=== PATIENT | female | born 1970 | race Caucasian/White ===

== ENCOUNTER 2016-06-08 11:01 | Emergency (ER) | payer BC ==
[2016-06-08 11:14] VITALS: BP 107/90
[2016-06-08] MEDS ORDERED: Sodium Chloride 0.9% 10 ML Syringe FLUSH PRN (11:30)
[2016-06-08] MEDS ORDERED: Sodium Chloride 0.9% 1,000 ML IV STA (11:30)
[2016-06-08] MEDS ORDERED: Ondansetron 4 MG/2 ML SDV IVPUSH ONE (11:30)
[2016-06-08] MEDS ORDERED: Sodium Chloride 0.9% 1,000 ML ONE (11:36)
[2016-06-08] MEDS ORDERED: Pantoprazole 40 MG Vial IVPUSH ONE (11:39)
--- NOTE | 2016-06-08 12:44 | EDM.PDOC ---
ED HPI Behavioral Health - General Chief Complaint: Behavioral/Psych Stated Complaint: MEDICATION ISSUES Time Seen by Provider: 06/08/16 11:20 Source of Information: Reports: Patient Exam Limitations: Reports: No limitations - History of Present Illness INITIAL COMMENTS - FREE TEXT/NARRATIVE: The patient presents with abdominal pain, nausea, vomiting for a few days. She has been drinking daily for 1 week. She is unable to take her medications. She has 2 meds for HTN and lorazepam. She feels she is withdrawing from her meds and alcohol. She has some bloody stool. She has a history of alcoholism. She denies chest pain or shortness of breath. Onset of Symptoms: Reports: gradual Duration of Symptoms: Reports: Day(s): Severity: moderate Associated Symptoms: Reports: agitation - Related Data Allergies Allergy/AdvReac Type Severity Reaction Status Date / Time No Known Allergies Allergy Verified 02/05/16 17:23 Home Medications: Home Meds LORazepam [LORazepam] 1 mg PO BID 02/05/16 [History] Losartan [Cozaar] 100 mg PO DAILY 04/30/16 [History] Ondansetron [Zofran ODT] 4 mg PO Q6H PRN #20 tab.dis 06/08/16 [Rx] PARoxetine HCl [Paxil] 20 mg PO DAILY #30 tablet 06/08/16 [Rx] Propranolol [Inderal] 20 mg PO BID 06/08/16 [History] Abdomen Pain Score (Numeric/FACES): 7 Past Medical History Cardiovascular History: Reports: Hypertension, Other (see below) Other Cardiovascular History: "clotting disorder- kota's syndrome" Respiratory History: Reports: Sleep apnea Other Respiratory History: sleeps with cpap Genitourinary History: Reports: UTI, recurrent 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: Musculoskeletal History: Reports: Other (see below) Other Musculoskeletal History: injury to L shoulder Neurological History: Reports: Migraines Other Neuro History: ocular migraines Psychiatric History: Reports: Addiction, Anxiety Other Psychiatric History: alcohol addiction Endocrine/Metabolic History: Reports: Obesity/BMI 30+ - Infectious Disease History Infectious Disease History: Reports: Chicken pox, Influenza, Measles, Other ( see below) Other Infectious Disease History: west nile virus - Past Surgical History HEENT Surgical History: Reports: Naso-sinus surgery Female Surgical History: Reports: D&C, Endometrial ablation Social & Family History - Family History Family Medical History: Noncontributory - Tobacco Use Smoking Status *Q: Never Smoker Second Hand Smoke Exposure: No - Caffeine Use Caffeine Use: Reports: Tea - Alcohol Use Days Per Week of Alcohol Use: 3 Number of Drinks Per Day: 10 Total Drinks Per Week: 30 - Recreational Drug Use Recreational Drug Use: No Drug Use in Last 12 Months: No - Living Situation & Occupation Living situation: Reports: , with spouse Occupation: unemployed ED ROS GENERAL - Review of Systems Review Of Systems: See Below Constitutional: Reports: chills HEENT: Reports: No symptoms Respiratory: Reports: No Symptoms Cardiovascular: Reports: No symptoms Endocrine: Reports: no symptoms GI/Abdominal: Reports: Abdominal pain, Black stool, Nausea, Vomiting : Reports: no symptoms Musculoskeletal: Reports: no symptoms Skin: Reports: no symptoms ED EXAM, BEHAVIORAL HEALTH - Physical Exam Exam: See Below Exam Limited By: No limitations General Appearance: alert, anxious Ears: normal external exam Nose: normal inspection Head: atraumatic, normocephalic Neck: normal inspection Respiratory/Chest: no respiratory distress, lungs clear, normal breath sounds Cardiovascular: regular rate, rhythm, no edema, no murmur GI/Abdominal: soft, non tender, no organomegaly, no mass Back Exam: normal inspection Extremities: normal inspection Neurological: alert, no motor/sensory deficits, oriented x 3 COURSE, BEHAVIORAL HEALTH COMP - Course Vital Signs: Last Vital Signs Temp 98.5 F 06/08/16 11:09 Pulse 107 H 06/08/16 11:09 Resp 24 H 06/08/16 11:09 BP 107/90 06/08/16 11:09 Pulse Ox 97 06/08/16 11:09 Orders, Labs, Meds: Active Orders 24 hr Category Date Time Status Peripheral IV Care [RC] . DIRECTED Care 06/08/16 11:30 Active UA W/MICROSCOPIC [URIN] Stat Lab 06/08/16 11:30 Uncollected Sodium Chloride 0.9% [Saline Flush] Med 06/08/16 11:30 Active 10 ml FLUSH ASDIRECTED PRN ED Antiemetic Medication Reflex [OM.PC] Stat Oth 06/08/16 11:32 Ordered Peripheral IV Insertion Adult [OM.PC] Stat Oth 06/08/16 11:30 Ordered Medication Orders Sodium Chloride (Saline Flush) 10 ml FLUSH ASDIRECTED PRN PRN Reason: Keep Vein Open Last Admin: 06/08/16 11:47 Dose: 10 ml Laboratory Tests 06/08/16 06/08/16 06/08/16 Range/Units 11:45 11:45 11:45 WBC 8.38 (3.98-10.04) K/mm3 RBC 5.04 (3.98-5.22) M/mm3 Hgb 15.6 (11.2-15.7) gm/L Hct 45.9 H (34.1-44.9) % MCV 91.1 (79.4-94.8) fl MCH 31.0 (25.6-32.2) pg MCHC 34.0 (32.2-35.5) g/dl RDW Std Deviation 46.1 (36.4-46.3) fL Plt Count 355 (182-369) K/mm3 MPV 9.2 L (9.4-12.3) fl Neut % (Auto) 42.4 (34.0-71.1) % Lymph % (Auto) 48.2 (19.3-51.7) % Nicholas % (Auto) 6.7 (4.7-12.5) % Eos % (Auto) 1.1 (0.7-5.8) Baso % (Auto) 1.2 (0.1-1.2) % Neut # (Auto) 3.56 (1.56-6.13) K/mm3 Lymph # (Auto) 4.04 H (1.18-3.74) K/mm3 Nicholas # (Auto) 0.56 H (0.24-0.36) K/mm3 Eos # (Auto) 0.09 (0.04-0.36) K/mm3 Baso # (Auto) 0.10 H (0.01-0.08) K/mm3 Sodium 143 (136-145) mEq/L Potassium 3.7 (3.5-5.1) mEq/L Chloride 104 (98-107) mEq/L Carbon Dioxide 26 (21-32) mEq/L Anion Gap 16.7 H (5-15) BUN 14 (7-18) mg/dL Creatinine 0.8 (0.55-1.02) mg/dL Est Cr Clr Drug Dosing 79.91 mL/min Estimated GFR (MDRD) > 60 (>60) mL/min BUN/Creatinine Ratio 17.5 (14-18) Glucose 122 H (74-106) mg/dL Calcium 8.6 (8.5-10.1) mg/dL Total Bilirubin 0.4 (0.2-1.0) mg/dL AST 23 (15-37) U/L ALT 51 (14-59) U/L Alkaline Phosphatase 99 (46-116) U/L Total Protein 7.6 (6.4-8.2) g/dl Albumin 3.2 L (3.4-5.0) g/dl Globulin 4.4 gm/dL Albumin/Globulin Ratio 0.7 L (1-2) Lipase 103 (73-393) U/L HCG, Qual Negative (NEGATIVE) Ethyl Alcohol 0.29 (0.00) gm% Medications Generic Name Dose Route Start Last Admin Trade Name Frejared PRN Reason Stop Dose Admin Sodium Chloride 10 ml 06/08/16 11:30 06/08/16 11:47 Saline Flush FLUSH 10 ml ASDIRECTED PRN Administration Keep Vein Open Discontinued Medications Generic Name Dose Route Start Last Admin Trade Name Freq PRN Reason Stop Dose Admin Sodium Chloride 1,000 mls @ 1,000 mls/hr 06/08/16 11:30 06/08/16 11:45 Normal Saline IV 06/08/16 12:29 1,000 mls/hr .BOLUS STA Administration Sodium Chloride Confirm 06/08/16 11:36 06/08/16 11:46 Normal Saline Administered 06/08/16 11:37 Not Given Dose 1,000 mls @ as directed .ROUTE .STK-MED ONE Ondansetron HCl 4 mg 06/08/16 11:30 06/08/16 11:46 Zofran IVPUSH 06/08/16 11:31 4 mg ONETIME ONE Administration Pantoprazole Sodium 80 mg 06/08/16 11:39 06/08/16 12:01 Protonix Iv IVPUSH 06/08/16 11:40 80 mg .BOLUS ONE Administration Re-Assessment/Re-Exam: I ordered an IV NS 1L bolus, zofran 4mg IV, protonix 80mg IV and labs. Her CBC is negative. Her anion gap is 16.7. Her HCG is negative. Her ETOH was elevated at 0.29. She feels much better now. She would like something different for anxiety so I will get her on some paxil. I will also give her some zofran. Departure - Departure Time of Disposition: 13:20 Disposition: Home, Self-Care 01 Condition: good Clinical Impression: Abdominal pain, Anxiety Alcohol intoxication Qualifiers: Complication of substance-induced condition: uncomplicated Qualified Code(s): F10.120 - Alcohol abuse with intoxication, uncomplicated Alcoholic gastritis Qualifiers: Chronicity: acute Gastritis bleeding: presence of bleeding unspecified Qualified Code(s): K29.20 - Alcoholic gastritis without bleeding Prescriptions: Ondansetron [Zofran ODT] 4 mg PO Q6H PRN #20 tab.dis PRN Reason: Nausea/Vomiting PARoxetine HCl [Paxil] 20 mg PO DAILY #30 tablet Referrals: Amirah Villanueva [employer] TENDER [Primary Care Provider] - 1 Week Forms: ED Department Discharge Additional Instructions: Take the paxil daily for your anxiety. Take the zofran every 6 hours as needed for nausea and vomiting. Take pepcid 20mg daily for 1 week for your upset stomach. Please return if you are worse with your anxiety or abdominal pain. - My Orders Last 24 Hours: My Active Orders 06/08/16 11:30 Peripheral IV Care [RC] . DIRECTED UA W/MICROSCOPIC [URIN] Stat Sodium Chloride 0.9% [Saline Flush] 10 ml FLUSH ASDIRECTED PRN Peripheral IV Insertion Adult [OM.PC] Stat 06/08/16 11:32 ED Antiemetic Medication Reflex [OM.PC] Stat - Assessment/Plan Last 24 Hours: My Active Orders 06/08/16 11:30 Peripheral IV Care [RC] . DIRECTED UA W/MICROSCOPIC [URIN] Stat Sodium Chloride 0.9% [Saline Flush] 10 ml FLUSH ASDIRECTED PRN Peripheral IV Insertion Adult [OM.PC] Stat 06/08/16 11:32 ED Antiemetic Medication Reflex [OM.PC] Stat
== END 2016-06-08 13:35 | disposition home or self-care (01) ==
LOC: JD.ED 11:01
DX: K29.20 Alcoholic gastritis without bleeding (principal); F10.229 Alcohol dependence with intoxication, unspecified; F10.239 Alcohol dependence with withdrawal, unspecified; Y90.1 Blood alcohol level of 20-39 mg/100 ml; I10 Essential (primary) hypertension; Z79.899 Other long term (current) drug therapy; F41.9 Anxiety disorder, unspecified; E66.9 Obesity, unspecified; Z68.30 Body mass index [BMI] 30.0-30.9, adult
CPT/HCPCS: 36415; 80053; 81001; 83690; 84703; 85025; 96361; 96374; 96375; 99284; C9113; G0480; J2405; J7040; J7050

== ENCOUNTER 2016-06-09 00:55 | Emergency (ER) | payer BC ==
--- NOTE | 2016-06-09 01:01 | EDM.PDOC ---
ED HPI GENERAL MEDICAL PROBLEM - General Chief Complaint: Gastrointestinal Problem Stated Complaint: VOMITING Time Seen by Provider: 06/09/16 01:00 - History of Present Illness INITIAL COMMENTS - FREE TEXT/NARRATIVE: 46-year-old female returns the emergency room with abdominal discomfort that she attributes to withdrawing from alcohol. Patient seen earlier today with similar complaints saved some fluids and Zofran and was doing better she was discharged home on Paxil 20 mg a day. Patient claims that she can keep her Zofran down and just cannot keep the rest of her medications down she complains of significant epigastric discomfort. She says she has had this for over a month. She denies fevers or chills no chest pain breathing difficulties or shortness of breath. Abdomen Pain Score (Numeric/FACES): 8 - Related Data Allergies Allergy/AdvReac Type Severity Reaction Status Date / Time No Known Allergies Allergy Verified 06/09/16 02:07 Home Meds: Home Meds LORazepam [LORazepam] 1 mg PO BID 02/05/16 [History] Losartan [Cozaar] 100 mg PO DAILY 04/30/16 [History] Ondansetron [Zofran ODT] 4 mg PO Q6H PRN #20 tab.dis 06/08/16 [Rx] PARoxetine HCl [Paxil] 20 mg PO DAILY #30 tablet 06/08/16 [Rx] Propranolol [Inderal] 20 mg PO BID 06/08/16 [History] Famotidine [Pepcid] 20 mg PO BID #60 tablet 06/09/16 [Rx] Sucralfate [Carafate] 1 gm PO QIDACANDBED #40 tablet 06/09/16 [Rx] Past Medical History Cardiovascular History: Reports: Hypertension, Other (see below) Other Cardiovascular History: "clotting disorder- kota's syndrome" Respiratory History: Reports: Sleep apnea Other Respiratory History: sleeps with cpap Genitourinary History: Reports: UTI, recurrent 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: Reports: Musculoskeletal History: Reports: Other (see below) Other Musculoskeletal History: injury to L shoulder Neurological History: Reports: Migraines Other Neuro History: ocular migraines Psychiatric History: Reports: Addiction, Anxiety Other Psychiatric History: alcohol addiction Endocrine/Metabolic History: Reports: Obesity/BMI 30+ - Infectious Disease History Infectious Disease History: Reports: Chicken pox, Influenza, Measles, Other ( see below) Other Infectious Disease History: west nile virus - Past Surgical History HEENT Surgical History: Reports: Naso-sinus surgery Female Surgical History: Reports: D&C, Endometrial ablation Social & Family History - Family History Family Medical History: Noncontributory - Tobacco Use Smoking Status *Q: Never Smoker Second Hand Smoke Exposure: No - Caffeine Use Caffeine Use: Reports: Tea - Alcohol Use Days Per Week of Alcohol Use: 3 Number of Drinks Per Day: 10 Total Drinks Per Week: 30 - Recreational Drug Use Recreational Drug Use: No Drug Use in Last 12 Months: No - Living Situation & Occupation Living situation: Reports: , with spouse Occupation: unemployed ED ROS GENERAL - Review of Systems Review Of Systems: See Below Constitutional: Denies: fever, chills HEENT: Reports: No symptoms Respiratory: Reports: No Symptoms Cardiovascular: Reports: No symptoms GI/Abdominal: Reports: Abdominal pain, Nausea, Vomiting. Denies: Constipation, Diarrhea : Reports: no symptoms ED EXAM, GENERAL - Physical Exam Exam: See Below Exam Limited By: Intoxication General Appearance: alert, no apparent distress Head: atraumatic, normocephalic Neck: normal inspection, supple, non-tender, full range of motion. No: lymphadenopathy (L), lymphadenopathy (R) Respiratory/Chest: no respiratory distress, lungs clear, normal breath sounds Cardiovascular: regular rate, rhythm, no edema, no murmur GI/Abdominal: normal bowel sounds, soft, no organomegaly, no distention, tender (She has epigastric discomfort quite significant with palpation). No: non tender, distended, guarding, rigid, rebound Back Exam: normal inspection. No: CVA tenderness (L), CVA tenderness (R) Course - Vital Signs Last Recorded V/S: Last Vital Signs Temp 36.4 C 06/09/16 01:04 Pulse 93 06/09/16 01:04 Resp 20 06/09/16 01:04 BP 135/78 06/09/16 01:04 Pulse Ox 94 L 06/09/16 01:04 - Orders/Labs/Meds Orders: Active Orders 24 hr Category Date Time Status Lactated Ringers [Ringers, Lactated] 1,000 ml Med 06/09/16 01:15 Active IV .BOLUS Medication Orders Lactated Ringer's (Ringers, Lactated) 1,000 mls @ 999 mls/hr IV .BOLUS ONE Stop: 06/09/16 02:15 Last Admin: 06/09/16 01:25 Dose: 999 mls/hr Labs: Laboratory Tests 06/09/16 Range/Units 01:25 Sodium 144 (136-145) mEq/L Potassium 3.6 (3.5-5.1) mEq/L Chloride 107 (98-107) mEq/L Carbon Dioxide 25 (21-32) mEq/L Anion Gap 15.6 H (5-15) BUN 13 (7-18) mg/dL Creatinine 0.9 (0.55-1.02) mg/dL Est Cr Clr Drug Dosing TNP Estimated GFR (MDRD) > 60 (>60) mL/min BUN/Creatinine Ratio 14.4 (14-18) Glucose 115 H (74-106) mg/dL Calcium 8.2 L (8.5-10.1) mg/dL Ethyl Alcohol 0.28 (0.00) gm% Meds: Medications Generic Name Dose Route Start Last Admin Trade Name Freq PRN Reason Stop Dose Admin Lactated Ringer's 1,000 mls @ 999 mls/hr 06/09/16 01:15 06/09/16 01:25 Ringers, Lactated IV 06/09/16 02:15 999 mls/hr .BOLUS ONE Administration Discontinued Medications Generic Name Dose Route Start Last Admin Trade Name Freq PRN Reason Stop Dose Admin Al Hydroxide/Mg Hydroxide 30 0 ml 06/09/16 01:16 06/09/16 01:32 ml/ Lidocaine HCl 15 ml PO 06/09/16 01:17 45 ml ONETIME ONE Administration Famotidine 20 mg 06/09/16 01:56 06/09/16 02:01 Pepcid IVPUSH 06/09/16 01:57 20 mg ONETIME ONE Administration Ondansetron HCl 4 mg 06/09/16 01:23 06/09/16 01:28 Zofran IVPUSH 06/09/16 01:24 4 mg ONETIME ONE Administration Sucralfate 1 gm 06/09/16 01:54 06/09/16 02:01 Carafate PO 06/09/16 01:55 1 gm ONETIME ONE Administration - Re-Assessments/Exams Free Text/Narrative Re-Assessment/Exam: 06/09/16 01:59 Patient had labs obtained was started on IV was given Zofran and a GI cocktail and after the GI cocktail her abdominal pain a 70% better. She would like a dose of her blood alcohol is 0.28 I will not give her Ativan. However, she should do better with medications for her dyspepsia and suspected gastritis secondary to heavy alcohol intake. The patient be started on Pepcid and Carafate. She will resume her routine medications. Yesterday the patient was started on Paxil 20 mg a day I recommended to her that she take 10 mg a day for 8 days and then increase it to 20 mg a day she should followup with her regular provider tomorrow. Departure - Departure Time of Disposition: 02:13 Disposition: Home, Self-Care 01 Clinical Impression: Dyspepsia Alcohol intoxication Qualifiers: Complication of substance-induced condition: uncomplicated Qualified Code(s): F10.120 - Alcohol abuse with intoxication, uncomplicated Alcoholic gastritis Qualifiers: Chronicity: acute Gastritis bleeding: presence of bleeding unspecified Qualified Code(s): K29.20 - Alcoholic gastritis without bleeding Prescriptions: Famotidine [Pepcid] 20 mg PO BID #60 tablet Sucralfate [Carafate] 1 gm PO QIDACANDBED #40 tablet Referrals: Amirah Villanueva NP [Primary Care Provider] - Additional Instructions: Return to the emergency room with any questions or problems. Decrease the Paxil, the medication your started on today to half a tablet daily for 8 days and then increase to a whole tablet daily. Followup in the clinic with her regular provider on Monday. You've been started on Pepcid 20 mg twice daily this is to help with her stomach discomfort thought to be heartburn secondary to gastritis from chronic alcohol use. You have also been started on Carafate this will help with the gastritis and heartburn take this for 10 days and then stop you will continue on with the Pepcid. Use your Zofran that you have at home as needed for nausea and vomiting. - My Orders Last 24 Hours: My Active Orders 06/09/16 01:15 Lactated Ringers [Ringers, Lactated] 1,000 ml IV .BOLUS - Assessment/Plan Last 24 Hours: My Active Orders 06/09/16 01:15 Lactated Ringers [Ringers, Lactated] 1,000 ml IV .BOLUS
[2016-06-09 01:08] VITALS: BP 135/78
[2016-06-09] MEDS ORDERED: Lactated Ringers 1,000 ML IV ONE (01:15)
[2016-06-09] MEDS ORDERED: Alum Hydrox/Mag Hydrox/Simeth 30 ML, Lidocaine 2% 15 ML PO ONE ×2 (01:16)
[2016-06-09] MEDS ORDERED: Ondansetron 4 MG/2 ML SDV IVPUSH ONE (01:23)
[2016-06-09] MEDS ORDERED: Sucralfate Suspension 1 GM/10 ML Cup PO ONE (01:54)
[2016-06-09] MEDS ORDERED: Famotidine 20 MG/2 ML SDV IVPUSH ONE (01:56)
== END 2016-06-09 02:30 | disposition home or self-care (01) ==
LOC: JD.ED 00:55
DX: R10.13 Epigastric pain (principal); K29.20 Alcoholic gastritis without bleeding; F10.220 Alcohol dependence with intoxication, uncomplicated; Z79.899 Other long term (current) drug therapy; I10 Essential (primary) hypertension; G47.30 Sleep apnea, unspecified; F32.9 Major depressive disorder, single episode, unspecified; E66.9 Obesity, unspecified; Z68.30 Body mass index [BMI] 30.0-30.9, adult
CPT/HCPCS: 36415; 80048; 96361; 96374; 96375; 99284; A9270; G0480; J2405; J7120

== ENCOUNTER 2016-07-14 16:34 | Emergency (ER) | payer BC ==
[2016-07-14 16:43] VITALS: BP 111/76
[2016-07-14] MEDS ORDERED: Sodium Chloride 0.9% 1,000 ML IV ONE (17:09)
[2016-07-14] MEDS ORDERED: Sodium Chloride 0.9% 10 ML Syringe FLUSH PRN (17:09)
[2016-07-14] MEDS ORDERED: LORazepam 2 MG/ML MDV IVPUSH ONE (17:09)
[2016-07-14] MEDS ORDERED: Ondansetron 4 MG/2 ML SDV IVPUSH ONE (17:33)
--- NOTE | 2016-07-14 17:39 | EDM.PDOC ---
ED HPI Behavioral Health - General Chief Complaint: Behavioral/Psych Stated Complaint: Anxiety Time Seen by Provider: 07/14/16 17:00 Source of Information: Reports: Patient, Old records, RN notes reviewed Exam Limitations: Reports: No limitations - History of Present Illness INITIAL COMMENTS - FREE TEXT/NARRATIVE: 46 year old female presents to the ED today with complaints of "not feeling well " and feeling sad. A friend of hers committed suicide this past week which is causing a lot of her anxiety and sadness. She is an alcoholic and was sober for two months. She began drinking a few days ago to help cope with her friends . She recently changed providers and has been tapering down Ativan. She is currently taking 1/4 of a tab twice a day. She was doing well with the taper until her friends . She has a very strict taper protocol and has not taken any extra. She says this is why she started drinking. She says she drank 3 glasses of blackberry gianni today. She feels she is having ativan withdrawal. Symptoms reported are insomnia, agitation, anxiety. She is established with a psychologist in [facility] but hasn't went for sometime. She denies suicidal ideation or plan. She clearly states she has no intention of harming herself. I asked her how she feels we can best help her. She is requesting IV fluids and nausea medication. She has a 90 day supply of Ativan at home but is hoping she can increase this due to her increasing anxiety. - Related Data Allergies Allergy/AdvReac Type Severity Reaction Status Date / Time No Known Allergies Allergy Verified 07/14/16 16:44 Home Medications: Home Meds LORazepam [LORazepam] 1 mg PO BID 02/05/16 [History] Propranolol [Inderal] 20 mg PO BID 06/08/16 [History] Lisinopril 20 mg PO DAILY 07/14/16 [History] Right Hand Pain Score (Numeric/FACES): 3 Past Medical History Cardiovascular History: Reports: Hypertension, Other (see below) Other Cardiovascular History: "clotting disorder- kota's syndrome" Respiratory History: Reports: Sleep apnea Other Respiratory History: sleeps with cpap Genitourinary History: Reports: UTI, recurrent 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: Musculoskeletal History: Reports: Other (see below) Other Musculoskeletal History: injury to L shoulder Neurological History: Reports: Migraines Other Neuro History: ocular migraines Psychiatric History: Reports: Addiction, Anxiety Other Psychiatric History: alcohol addiction Endocrine/Metabolic History: Reports: Obesity/BMI 30+ - Infectious Disease History Infectious Disease History: Reports: Chicken pox, Influenza, Measles, Other ( see below) Other Infectious Disease History: west nile virus - Past Surgical History HEENT Surgical History: Reports: Naso-sinus surgery Female Surgical History: Reports: D&C, Endometrial ablation Social & Family History - Family History Family Medical History: Noncontributory - Tobacco Use Smoking Status *Q: Never Smoker Second Hand Smoke Exposure: No - Caffeine Use Caffeine Use: Reports: Tea - Alcohol Use Days Per Week of Alcohol Use: 3 Number of Drinks Per Day: 10 Total Drinks Per Week: 30 - Recreational Drug Use Recreational Drug Use: No Drug Use in Last 12 Months: No - Living Situation & Occupation Living situation: Reports: , with spouse Occupation: unemployed ED ROS GENERAL - Review of Systems Review Of Systems: See Below Respiratory: Reports: No Symptoms. Denies: Shortness of Breath Cardiovascular: Reports: No symptoms. Denies: Chest pain GI/Abdominal: Reports: Nausea. Denies: Abdominal pain, Vomiting Psychiatric: Reports: Anxiety, Depression. Denies: Suicidal ideation ED EXAM, BEHAVIORAL HEALTH - Physical Exam Exam: See Below Exam Limited By: No limitations General Appearance: alert, WD/WN, no apparent distress, anxious Respiratory/Chest: no respiratory distress, lungs clear, normal breath sounds Cardiovascular: regular rate, rhythm GI/Abdominal: normal bowel sounds, soft, non tender, no organomegaly, no distention Neurological: alert, normal gait, no motor/sensory deficits, oriented x 3 Psychiatric: alert, tearful. No: suicidal plan, suicidal thoughts Skin Exam: Warm, Dry, Intact, Other (superficial burn to right hand, no signs of infection ) COURSE, BEHAVIORAL HEALTH COMP - Course Vital Signs: Last Vital Signs Temp 99.3 F 07/14/16 16:39 Pulse 103 H 07/14/16 16:39 Resp 20 07/14/16 16:39 BP 111/76 07/14/16 16:39 Pulse Ox 94 L 07/14/16 16:39 Orders, Labs, Meds: Active Orders 24 hr Category Date Time Status Peripheral IV Care [RC] . DIRECTED Care 07/14/16 17:10 Ordered Sodium Chloride 0.9% [Normal Saline] 1,000 ml Med 07/14/16 17:09 Ordered IV ONETIME Sodium Chloride 0.9% [Saline Flush] Med 07/14/16 17:09 Ordered 10 ml FLUSH ASDIRECTED PRN Peripheral IV Insertion Adult [OM.PC] Stat Oth 07/14/16 17:09 Ordered Medication Orders Sodium Chloride (Normal Saline) 1,000 mls @ 999 mls/hr IV ONETIME ONE Stop: 07/14/16 18:09 Last Admin: 07/14/16 17:28 Dose: 999 mls/hr Sodium Chloride (Saline Flush) 10 ml FLUSH ASDIRECTED PRN PRN Reason: Keep Vein Open Last Admin: 07/14/16 17:28 Dose: 10 ml Medications Generic Name Dose Route Start Last Admin Trade Name Freq PRN Reason Stop Dose Admin Sodium Chloride 1,000 mls @ 999 mls/hr 07/14/16 17:09 07/14/16 17:28 Normal Saline IV 07/14/16 18:09 999 mls/hr ONETIME ONE Administration Sodium Chloride 10 ml 07/14/16 17:09 07/14/16 17:28 Saline Flush FLUSH 10 ml ASDIRECTED PRN Administration Keep Vein Open Discontinued Medications Generic Name Dose Route Start Last Admin Trade Name Freq PRN Reason Stop Dose Admin Lorazepam 0.5 mg 07/14/16 17:09 07/14/16 17:26 Ativan IVPUSH 07/14/16 17:10 0.5 mg ONETIME ONE Administration Ondansetron HCl 4 mg 07/14/16 17:33 07/14/16 17:51 Zofran IVPUSH 07/14/16 17:34 4 mg ONETIME ONE Administration Re-Assessment/Re-Exam: Nursing staff reports that IV infiltrated after approximately 500ml of IV fluid. The patient is feeling better after the IV ativan and Zofran. No need for new IV as patient is feeling better. The patient has continued to deny suicidal ideation or plan. She feels sad and has increased anxiety. She agrees to return to the ER if she develops suicidal ideation. Due to loss of a close friend, I instructed her to increase her Ativan to 1/2 tab twice a day. She understands the risks of combining Ativan and alcohol. She is to f/u with her PCP early next week. She has a 90 day supply of Ativan so a new prescription will not be provided. Her significant other is here to drive her home. Departure - Departure Time of Disposition: 18:07 Disposition: Home, Self-Care 01 Condition: good Clinical Impression: Anxiety, Burn Alcohol intoxication Qualifiers: Complication of substance-induced condition: uncomplicated Qualified Code(s): F10.120 - Alcohol abuse with intoxication, uncomplicated Referrals: Amirah Villanueva INTERRELATED SPECIAL EDUCATION TEACHER [Primary Care Provider] - Forms: ED Department Discharge Additional Instructions: Bacitracin ointment to burn 2-3 times a day until healed. May leave open to air Follow-up with your psychiatrist and primary care provider as soon as possible Increase Ativan to 1/2 tab as needed for anxiety Again, do not use Ativan in combination with alcohol Return to ER if you develop any thoughts or intentions of harming yourself - My Orders Last 24 Hours: My Active Orders 07/14/16 17:09 Sodium Chloride 0.9% [Normal Saline] 1,000 ml IV ONETIME Sodium Chloride 0.9% [Saline Flush] 10 ml FLUSH ASDIRECTED PRN Peripheral IV Insertion Adult [OM.PC] Stat 07/14/16 17:10 Peripheral IV Care [RC] . DIRECTED - Assessment/Plan Last 24 Hours: My Active Orders 07/14/16 17:09 Sodium Chloride 0.9% [Normal Saline] 1,000 ml IV ONETIME Sodium Chloride 0.9% [Saline Flush] 10 ml FLUSH ASDIRECTED PRN Peripheral IV Insertion Adult [OM.PC] Stat 07/14/16 17:10 Peripheral IV Care [RC] . DIRECTED
== END 2016-07-14 18:10 | disposition home or self-care (01) ==
LOC: JD.ED 16:34
DX: F41.9 Anxiety disorder, unspecified (principal); T23.101A Burn of first degree of right hand, unspecified site, initial encounter; F10.120 Alcohol abuse with intoxication, uncomplicated; G47.30 Sleep apnea, unspecified; E66.9 Obesity, unspecified; Z68.30 Body mass index [BMI] 30.0-30.9, adult; Z98.890 Other specified postprocedural states; Z79.899 Other long term (current) drug therapy; X58.XXXA Exposure to other specified factors, initial encounter
CPT/HCPCS: 96361; 96374; 96375; 99284; J2060; J2405; J7040; J7050; 99285-25

== ENCOUNTER 2016-07-16 12:40 | Emergency (ER) | payer BC ==
[2016-07-16] MEDS ORDERED: Sodium Chloride 0.9% 10 ML Syringe FLUSH PRN (13:20)
[2016-07-16] MEDS ORDERED: Ondansetron 4 MG/2 ML SDV IVPUSH ONE (13:21)
[2016-07-16] MEDS ORDERED: Sodium Chloride 0.9% 1,000 ML IV ONE ×2 (13:21→14:59)
--- NOTE | 2016-07-16 13:57 | EDM.PDOC ---
ED HPI GENERAL MEDICAL PROBLEM - General Time Seen by Provider: 07/16/16 13:16 - Related Data Allergies Allergy/AdvReac Type Severity Reaction Status Date / Time No Known Allergies Allergy Verified 07/18/16 15:40 Home Meds: Home Meds LORazepam [LORazepam] 0.5 mg PO BID 02/05/16 [History] Propranolol [Inderal] 20 mg PO BID 06/08/16 [History] Lisinopril 20 mg PO BID 07/14/16 [History] Past Medical History Cardiovascular History: Reports: Hypertension, Other (see below) Other Cardiovascular History: "clotting disorder- kota's syndrome" Respiratory History: Reports: Sleep apnea Other Respiratory History: sleeps with cpap Genitourinary History: Reports: UTI, recurrent 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: Musculoskeletal History: Reports: Other (see below) Other Musculoskeletal History: injury to L shoulder Neurological History: Reports: Migraines Other Neuro History: ocular migraines Psychiatric History: Reports: Addiction, Anxiety Other Psychiatric History: alcohol addiction Endocrine/Metabolic History: Reports: Obesity/BMI 30+ - Infectious Disease History Infectious Disease History: Reports: Chicken pox, Influenza, Measles, Other ( see below) Other Infectious Disease History: west nile virus - Past Surgical History HEENT Surgical History: Reports: Naso-sinus surgery Female Surgical History: Reports: D&C, Endometrial ablation Social & Family History - Family History Family Medical History: Noncontributory - Tobacco Use Smoking Status *Q: Never Smoker Second Hand Smoke Exposure: No - Caffeine Use Caffeine Use: Reports: None - Alcohol Use Days Per Week of Alcohol Use: 3 Number of Drinks Per Day: 10 Total Drinks Per Week: 30 - Recreational Drug Use Recreational Drug Use: No Drug Use in Last 12 Months: No - Living Situation & Occupation Living situation: Reports: , with spouse Occupation: unemployed ED ROS GENERAL - Review of Systems Review Of Systems: See Below GI/Abdominal: Reports: Abdominal Pain, Nausea Psychiatric: Denies: Homicidal Ideation, Suicidal Ideation - Physical Exam Exam: See Below Exam Limited By: Intoxication General Appearance: Alert, WD/WN, No Apparent Distress Respiratory/Chest: No Respiratory Distress, Lungs Clear, Normal Breath Sounds Cardiovascular: Normal Peripheral Pulses, Regular Rate, Rhythm, No Murmur GI/Abdominal: Normal Bowel Sounds, Soft, Non-Tender Neuro Exam (Abbreviated): Alert Psychiatric: Normal Affect, Normal Mood. No: Depressed Mood, Tearful Skin Exam: Warm, Dry, Normal Color Course - Vital Signs Last Recorded V/S: Last Vital Signs Temp 37.4 C 07/16/16 12:42 Pulse 88 07/16/16 13:30 Resp 18 07/16/16 12:42 BP 97/64 07/16/16 13:30 Pulse Ox 90 L 07/16/16 13:30 - Orders/Labs/Meds Labs: Laboratory Tests 07/16/16 07/16/16 07/16/16 Range/Units 13:50 13:50 14:35 WBC 8.56 (3.98-10.04) K/mm3 RBC 5.15 (3.98-5.22) M/mm3 Hgb 16.2 H (11.2-15.7) gm/L Hct 46.1 H (34.1-44.9) % MCV 89.5 (79.4-94.8) fl MCH 31.5 (25.6-32.2) pg MCHC 35.1 (32.2-35.5) g/dl RDW Std Deviation 41.3 (36.4-46.3) fL Plt Count 381 H (182-369) K/mm3 MPV 9.2 L (9.4-12.3) fl Neut % (Auto) 39.2 (34.0-71.1) % Lymph % (Auto) 47.0 (19.3-51.7) % [place] % (Auto) 11.2 (4.7-12.5) % Eos % (Auto) 1.2 (0.7-5.8) Baso % (Auto) 1.3 H (0.1-1.2) % Neut # (Auto) 3.36 (1.56-6.13) K/mm3 Lymph # (Auto) 4.02 H (1.18-3.74) K/mm3 [place] # (Auto) 0.96 H (0.24-0.36) K/mm3 Eos # (Auto) 0.10 (0.04-0.36) K/mm3 Baso # (Auto) 0.11 H (0.01-0.08) K/mm3 Sodium 143 (136-145) mEq/L Potassium 4.3 (3.5-5.1) mEq/L Chloride 106 (98-107) mEq/L Carbon Dioxide 28 (21-32) mEq/L Anion Gap 13.3 (5-15) BUN 21 H (7-18) mg/dL Creatinine 0.9 (0.55-1.02) mg/dL Est Cr Clr Drug Dosing TNP Estimated GFR (MDRD) > 60 (>60) mL/min BUN/Creatinine Ratio 23.3 H (14-18) Glucose 131 H (74-106) mg/dL Calcium 8.1 L (8.5-10.1) mg/dL Magnesium 2.0 (1.8-2.4) mg/dl Total Bilirubin 0.5 (0.2-1.0) mg/dL AST 33 (15-37) U/L ALT 59 (14-59) U/L Alkaline Phosphatase 70 (46-116) U/L Total Protein 7.0 (6.4-8.2) g/dl Albumin 3.7 (3.4-5.0) g/dl Globulin 3.3 gm/dL Albumin/Globulin Ratio 1.1 (1-2) Urine Color (Yellow) Urine Appearance (Clear) Urine pH (5.0-8.0) Ur Specific [place] (1.005-1.030) Urine Protein (Negative) Urine Glucose (UA) (Negative) Urine Ketones (Negative) Urine Occult Blood (Negative) Urine Nitrite (Negative) Urine Bilirubin (Negative) Urine Urobilinogen (0.2-1.0) Ur Leukocyte Esterase (Negative) Urine RBC (0-5) /hpf Urine WBC (0-5) /hpf Ur Epithelial Cells Ur Squamous Epith Cells (0-5) /hpf Urine Bacteria (FEW) /hpf Urine Mucus (FEW) /hpf Urine Opiates Screen Negative (NEGATIVE) Ur Buprenorphine Scrn Negative (NEGATIVE) Ur Oxycodone Screen Negative (NEGATIVE) Urine Methadone Screen Negative (NEGATIVE) Ur Propoxyphene Screen Negative (NEGATIVE) Ur Barbiturates Screen Negative (NEGATIVE) Ur Tricyclics Screen Negative (NEGATIVE) Ur Phencyclidine Scrn Negative (NEGATIVE) Ur Amphetamine Screen Negative (NEGATIVE) U Methamphetamines Scrn Negative (NEGATIVE) U Benzodiazepines Scrn Presumptive positive H (NEGATIVE) U Cocaine Metab Screen Negative (NEGATIVE) U Marijuana (THC) Screen Negative (NEGATIVE) Ethyl Alcohol 0.29 (0.00) gm% 07/16/16 Range/Units 14:35 WBC (3.98-10.04) K/mm3 RBC (3.98-5.22) M/mm3 Hgb (11.2-15.7) gm/L Hct (34.1-44.9) % MCV (79.4-94.8) fl MCH (25.6-32.2) pg MCHC (32.2-35.5) g/dl RDW Std Deviation (36.4-46.3) fL Plt Count (182-369) K/mm3 MPV (9.4-12.3) fl Neut % (Auto) (34.0-71.1) % Lymph % (Auto) (19.3-51.7) % [place] % (Auto) (4.7-12.5) % Eos % (Auto) (0.7-5.8) Baso % (Auto) (0.1-1.2) % Neut # (Auto) (1.56-6.13) K/mm3 Lymph # (Auto) (1.18-3.74) K/mm3 [place] # (Auto) (0.24-0.36) K/mm3 Eos # (Auto) (0.04-0.36) K/mm3 Baso # (Auto) (0.01-0.08) K/mm3 Sodium (136-145) mEq/L Potassium (3.5-5.1) mEq/L Chloride (98-107) mEq/L Carbon Dioxide (21-32) mEq/L Anion Gap (5-15) BUN (7-18) mg/dL Creatinine (0.55-1.02) mg/dL Est Cr Clr Drug Dosing Estimated GFR (MDRD) (>60) mL/min BUN/Creatinine Ratio (14-18) Glucose (74-106) mg/dL Calcium (8.5-10.1) mg/dL Magnesium (1.8-2.4) mg/dl Total Bilirubin (0.2-1.0) mg/dL AST (15-37) U/L ALT (14-59) U/L Alkaline Phosphatase (46-116) U/L Total Protein (6.4-8.2) g/dl Albumin (3.4-5.0) g/dl Globulin gm/dL Albumin/Globulin Ratio (1-2) Urine Color Yellow (Yellow) Urine Appearance Slt cloudy H (Clear) Urine pH 6.0 (5.0-8.0) Ur Specific [place] 1.020 (1.005-1.030) Urine Protein 1+ H (Negative) Urine Glucose (UA) Negative (Negative) Urine Ketones Negative (Negative) Urine Occult Blood Negative (Negative) Urine Nitrite Negative (Negative) Urine Bilirubin Negative (Negative) Urine Urobilinogen 0.2 (0.2-1.0) Ur Leukocyte Esterase 1+ H (Negative) Urine RBC 0-5 (0-5) /hpf Urine WBC 40-50 H (0-5) /hpf Ur Epithelial Cells Not Reportable Ur Squamous Epith Cells 5-10 H (0-5) /hpf Urine Bacteria Moderate H (FEW) /hpf Urine Mucus Few (FEW) /hpf Urine Opiates Screen (NEGATIVE) Ur Buprenorphine Scrn (NEGATIVE) Ur Oxycodone Screen (NEGATIVE) Urine Methadone Screen (NEGATIVE) Ur Propoxyphene Screen (NEGATIVE) Ur Barbiturates Screen (NEGATIVE) Ur Tricyclics Screen (NEGATIVE) Ur Phencyclidine Scrn (NEGATIVE) Ur Amphetamine Screen (NEGATIVE) U Methamphetamines Scrn (NEGATIVE) U Benzodiazepines Scrn (NEGATIVE) U Cocaine Metab Screen (NEGATIVE) U Marijuana (THC) Screen (NEGATIVE) Ethyl Alcohol (0.00) gm% Meds: Medications Discontinued Medications Generic Name Dose Route Start Last Admin Trade Name Freq PRN Reason Stop Dose Admin Sodium Chloride 1,000 mls @ 999 mls/hr 07/16/16 13:21 07/16/16 13:51 Normal Saline IV 07/16/16 14:21 999 mls/hr ONETIME ONE Administration Sodium Chloride 1,000 mls @ 999 mls/hr 07/16/16 14:59 07/16/16 15:06 Normal Saline IV 07/16/16 15:59 999 mls/hr ONETIME ONE Administration Ondansetron HCl 4 mg 07/16/16 13:21 07/16/16 13:52 Zofran IVPUSH 07/16/16 13:22 4 mg ONETIME ONE Administration Sodium Chloride 10 ml 07/16/16 13:20 07/16/16 13:55 Saline Flush FLUSH 10 ml ASDIRECTED PRN Administration Keep Vein Open - Re-Assessments/Exams Free Text/Narrative Re-Assessment/Exam: 07/16/16 15:39 Labs returned. White blood cell count is normal at 8.56, hemoglobin 16.2 and platelets are 381. Sodium is 143, potassium 4.3 chloride is 106. Anion gap is 13.3. Creatinine 0.9. Glucose is 131. Magnesium is 2.0. Alcohol is 0.29. AST is 33, ALT is 59 alkaline phosphatase is 70. The patient is on her 2nd NS bolus. She is feeling better. She is alert and sobering up. She denies any suicidal ideation, suicidal plan, homicidal ideation or homicidal plan. Plan will be to give her he 2nd NS bolus and discharge her home. 07/16/16 18:30 UA has returned with 1+ protein, 1+ leuks and moderate bacteria. Drug screen was positive for benzos. Patient continues to sober up. She has received 2 L of fluid and medications for nausea. I am unwilling to give her any more Ativan as she received #180 Ativan 1 mg tabs in mid June according to [place] MANGLE OPERATOR GARMENTS Aware. She is now feeling nauseous and vomited. She reports this is normal for her after drinking heavily. I will discharge the patient home with a prescription for Zofran. We have attempted to contact the patient's on multiple occasions. No response. We were informed that he was to arrival in the ER around 6 PM. At this time the patient is not harm herself or anyone else. I feel she can safely go home and sleep off her hang over. I will discharge her home at this time. Discharge instructions as documented. 07/16/16 19:32 Due to the patient's not arriving in the ER we will send the patient by taxi home. Around 7:00 PM the patient's 's showed up in the ER, moments after the patient left. He expressed that he is disappointed as we did not commit the patient. I've seen the patient before for alcohol intoxication. Most recent visit with her in April she was sober. Patient did not want any help with alcohol when she was here in ER. I did not have enough to commit her at that time without his opinion as to what is going on. They were advised that should she return to the ER it would be kimble for them to come with and share their concerns regarding her alcoholism. Departure - Departure Time of Disposition: 18:15 Disposition: Home, Self-Care 01 Clinical Impression: Alcohol intoxication Qualifiers: Complication of substance-induced condition: uncomplicated Qualified Code(s): F10.120 - Alcohol abuse with intoxication, uncomplicated - Discharge Information Instructions: Alcohol Intoxication, [id number] Referrals: Amirah Villanueva NP [Primary Care Provider] - Forms: ED Department Discharge Additional Instructions: Continue with your current plan of care. recommend follow up with Amirah Villanueva if you need help with your Ativan dosing and do not feel your current dose is adequate. We recommend that you stop drinking alcohol. You will have a longer, healthier and happier life if you stop drinking alcohol. Please return to ER if your symptoms change or worsen. ED HPI ALTERED MENTAL STATUS - General Chief Complaint: Behavioral/Psych Stated Complaint: [facility] Time Seen by Provider: 07/16/16 13:16 Source of Information: Reports: Patient, EMS History Limitations: Reports: No Limitations - History of Present Illness INITIAL COMMENTS - FREE TEXT/NARRATIVE: 45-year-old female presents via the [facility] for self harm at home. That he must received is that the patient was attempting self-harm at home. Patient denies any suicidal ideation, plan, homicidal ideation or plan. The patient reports that she is having a difficult time with trying Ativan. She states that she took 5 quarter tabs (0.25 mg; 1.25mg total) of Ativan with some gianni earlier today. Reports 1 shot of blackberry gianni. She states she has a hard time getting off the Ativan. She appears intoxicated upon my initial evaluation. She reports nausea and abdominal discomfort. Baseline Mental Status: Reports: alert/oriented Context: Reports: drug/ETOH abuse - Related Data Allergies/ADRs: Allergies No Known Allergies Allergy (Verified 07/18/16 15:40) Home Meds: Home Meds LORazepam [LORazepam] 0.5 mg PO BID 02/05/16 [History] Propranolol [Inderal] 20 mg PO BID 06/08/16 [History] Lisinopril 20 mg PO BID 07/14/16 [History] Departure - Departure Time of Disposition: 18:15 Disposition: Home, Self-Care 01 Condition: fair Clinical Impression: Alcohol intoxication Qualifiers: Complication of substance-induced condition: uncomplicated Qualified Code(s): F10.120 - Alcohol abuse with intoxication, uncomplicated Instructions: Alcohol Intoxication, [id number] Referrals: Amirah Villanueva NP [Primary Care Provider] - Forms: ED Department Discharge Additional Instructions: Zofran 4mg sublingual tabs 1 tab PO every 8 hors prn nausea #7 written Continue with your current plan of care. recommend follow up with Amirah Villanueva if you need help with your Ativan dosing and do not feel your current dose is adequate. We recommend that you stop drinking alcohol. You will have a longer, healthier and happier life if you stop drinking alcohol. Please return to ER if your symptoms change or worsen.
[2016-07-16 13:58] VITALS: BP 97/64
== END 2016-07-16 18:30 | disposition home or self-care (01) ==
LOC: JD.ED 12:40
DX: F10.120 Alcohol abuse with intoxication, uncomplicated (principal); Y90.1 Blood alcohol level of 20-39 mg/100 ml; R10.9 Unspecified abdominal pain; R11.2 Nausea with vomiting, unspecified; I10 Essential (primary) hypertension; F41.9 Anxiety disorder, unspecified; G47.30 Sleep apnea, unspecified; E66.9 Obesity, unspecified; Z98.890 Other specified postprocedural states
CPT/HCPCS: 36415; 80053; 80306; 81001; 83735; 85025; 96361; 96374; 99285; G0480; J2405; J7040; J7050; 99284

== ENCOUNTER 2016-07-18 15:23 | Inpatient (IN) | payer BC ==
[2016-07-18] MEDS ORDERED: Haloperidol Lactate 5 MG/ML SDV IM ONE (15:45)
[2016-07-18] MEDS ORDERED: Sodium Chloride 0.9% 10 ML Syringe FLUSH PRN (15:46)
[2016-07-18] MEDS ORDERED: Haloperidol Lactate 5 MG/ML SDV ONE (15:46)
--- NOTE | 2016-07-18 15:49 | EDM.PDOC ---
ED HPI Behavioral Health - General Chief Complaint: Behavioral/Psych Stated Complaint: MENTAL ISSUES Time Seen by Provider: 07/18/16 15:34 Source of Information: Reports: Family Exam Limitations: Reports: No limitations - History of Present Illness INITIAL COMMENTS - FREE TEXT/NARRATIVE: Patient is a 46 year old female who presents to the E.D. intoxicated having a anxiety attack. and daughter are present. Patient has history of anxiety /depression and chronic ativan use. Patient was recently evaluated this past weekend having a panic attack. Patient was provided a prescription for ativan. Family believes patient is having ativan withdraws. States it is unknown when she last took her ativan. In addition patient has been consuming alcohol for the past few days and is intoxicated. Family is requesting patient get help and is willing to involuntarily commit the patient. Patient has been evaluated in the E.D. multiple times per family for similar complaints. Patient states she wants help and when she gets sober leaves. Patient is unable to answer all questions due to increased agitation and thrashing in her bed. Family is providing most of the history. Duration of Symptoms: Reports: Chronic, Waxing/waning Severity: severe Associated Symptoms: Reports: anxiety, agitation, depression. 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 (see below) (none stated) - Related Data Allergies Allergy/AdvReac Type Severity Reaction Status Date / Time No Known Allergies Allergy Verified 07/18/16 15:40 Home Medications: Home Meds LORazepam [LORazepam] 1 mg PO BID 02/05/16 [History] Propranolol [Inderal] 20 mg PO BID 06/08/16 [History] Lisinopril 20 mg PO DAILY 07/14/16 [History] Past Medical History Cardiovascular History: Reports: Hypertension, Other (see below) Other Cardiovascular History: "clotting disorder- kota's syndrome" Respiratory History: Reports: Sleep apnea Other Respiratory History: sleeps with cpap Genitourinary History: Reports: UTI, recurrent CLINICAL INFORMATICS SPEC History: Reports: Musculoskeletal History: Reports: Other (see below) Other Musculoskeletal History: injury to L shoulder Neurological History: Reports: Migraines Other Neuro History: ocular migraines Psychiatric History: Reports: Addiction, Anxiety Other Psychiatric History: alcohol addiction Endocrine/Metabolic History: Reports: Obesity/BMI 30+ - Infectious Disease History Infectious Disease History: Reports: Chicken pox, Influenza, Measles, Other ( see below) Other Infectious Disease History: west nile virus - Past Surgical History HEENT Surgical History: Reports: Naso-sinus surgery Female Surgical History: Reports: D&C, Endometrial ablation Social & Family History - Family History Family Medical History: Noncontributory - Tobacco Use Smoking Status *Q: Unknown Ever Smoked Second Hand Smoke Exposure: No - Caffeine Use Caffeine Use: Reports: None - Alcohol Use Days Per Week of Alcohol Use: 7 Number of Drinks Per Day: 7 Total Drinks Per Week: 49 - Recreational Drug Use Recreational Drug Use: No Drug Use in Last 12 Months: No Other Recreational Drug Type: has hx of abusing ativan - Living Situation & Occupation Living situation: Reports: , with spouse Occupation: unemployed ED ROS GENERAL - Review of Systems Review Of Systems: Unable To Obtain ED EXAM, BEHAVIORAL HEALTH - Physical Exam Exam: See Below Exam Limited By: Intoxication General Appearance: alert, anxious Eye Exam: bilateral eye: EOMI, PERRL Ears: hearing grossly normal Nose: normal inspection Throat/Mouth: Normal voice, No airway compromise Neck: normal inspection, supple. No: lymphadenopathy (L), lymphadenopathy (R) Respiratory/Chest: no respiratory distress, lungs clear, normal breath sounds, no accessory muscle use, chest non-tender Cardiovascular: normal peripheral pulses, no murmur, tachycardia GI/Abdominal: normal bowel sounds, soft, non tender, no organomegaly, no distention Extremities: normal inspection, non-tender, no pedal edema, normal capillary refill Neurological: alert, CN II-XII intact, normal cognition, no motor/sensory deficits, oriented x 3 Psychiatric: alert, oriented, restless, tearful, uncooperative. No: suicidal thoughts, auditory hallucinations, visual hallucinations, paranoid thoughts Skin Exam: Warm, Dry, Intact, Normal color, No rash COURSE, BEHAVIORAL HEALTH COMP - Course Vital Signs: Last Vital Signs Temp 98.8 F 07/18/16 20:30 Pulse 105 H 07/18/16 15:34 Resp 17 07/18/16 21:09 BP 111/85 07/18/16 20:30 Pulse Ox 94 L 07/18/16 21:09 Orders, Labs, Meds: Active Orders 24 hr Category Date Time Status Peripheral IV Care [RC] . DIRECTED Care 07/18/16 15:46 Active Sodium Chloride 0.9% [Saline Flush] Med 07/18/16 15:46 Active 10 ml FLUSH ASDIRECTED PRN Peripheral IV Insertion Adult [OM.PC] Stat Oth 07/18/16 15:46 Ordered Medication Orders Chlordiazepoxide HCl (Librium) 25 mg PO TID TANYA Chlordiazepoxide HCl (Librium) 25 mg PO ONETIME ONE Stop: 07/18/16 21:43 Diazepam (Valium) 5 mg IVPUSH Q6H PRN PRN Reason: Anxiety Enoxaparin Sodium (Lovenox) 40 mg SUBCUT DAILY TANYA Folic Acid (Folic Acid) 1 mg PO DAILY TANYA Haloperidol Lactate (Haldol) 5 mg IVPUSH Q8H PRN PRN Reason: restlessness Lactated Ringer's (Ringers, Lactated) 1,000 mls @ 125 mls/hr IV ASDIRECTED TANYA Multivitamins/Minerals (M.V.I. Adult) 10 ml IV DAILY TANYA Sodium Chloride (Saline Flush) 10 ml FLUSH ASDIRECTED PRN PRN Reason: Keep Vein Open Last Admin: 07/18/16 15:47 Dose: 10 ml Thiamine HCl (Vitamin B-1) 100 mg IV DAILY [facility] Laboratory Tests 07/18/16 07/18/16 07/18/16 Range/Units 15:45 15:50 15:50 WBC 7.85 (3.98-10.04) K/mm3 RBC 4.93 (3.98-5.22) M/mm3 Hgb 15.5 (11.2-15.7) gm/L Hct 43.9 (34.1-44.9) % MCV 89.0 (79.4-94.8) fl MCH 31.4 (25.6-32.2) pg MCHC 35.3 (32.2-35.5) g/dl RDW Std Deviation 40.4 (36.4-46.3) fL Plt Count 347 (182-369) K/mm3 MPV 9.3 L (9.4-12.3) fl Neut % (Auto) 38.3 (34.0-71.1) % Lymph % (Auto) 48.9 (19.3-51.7) % Rice % (Auto) 10.7 (4.7-12.5) % Eos % (Auto) 1.0 (0.7-5.8) Baso % (Auto) 1.0 (0.1-1.2) % Neut # (Auto) 3.00 (1.56-6.13) K/mm3 Lymph # (Auto) 3.84 H (1.18-3.74) K/mm3 Rice # (Auto) 0.84 H (0.24-0.36) K/mm3 Eos # (Auto) 0.08 (0.04-0.36) K/mm3 Baso # (Auto) 0.08 (0.01-0.08) K/mm3 Sodium 144 (136-145) mEq/L Potassium 3.8 (3.5-5.1) mEq/L Chloride 107 (98-107) mEq/L Carbon Dioxide 27 (21-32) mEq/L Anion Gap 13.8 (5-15) BUN 19 H (7-18) mg/dL Creatinine 0.9 (0.55-1.02) mg/dL Est Cr Clr Drug Dosing TNP Estimated GFR (MDRD) > 60 (>60) mL/min BUN/Creatinine Ratio 21.1 H (14-18) Glucose 135 H (74-106) mg/dL Calcium 8.4 L (8.5-10.1) mg/dL Magnesium 1.9 (1.8-2.4) mg/dl Total Bilirubin 0.6 (0.2-1.0) mg/dL AST 63 H (15-37) U/L ALT 73 H (14-59) U/L Alkaline Phosphatase 68 (46-116) U/L Total Protein 6.4 (6.4-8.2) g/dl Albumin 3.4 (3.4-5.0) g/dl Globulin 3.0 gm/dL Albumin/Globulin Ratio 1.1 (1-2) TSH 3rd Generation 0.328 L (0.358-3.74) uIU/mL Urine Color (Yellow) Urine Appearance (Clear) Urine pH (5.0-8.0) Ur Specific [place] (1.005-1.030) Urine Protein (Negative) Urine Glucose (UA) (Negative) Urine Ketones (Negative) Urine Occult Blood (Negative) Urine Nitrite (Negative) Urine Bilirubin (Negative) Urine Urobilinogen (0.2-1.0) Ur Leukocyte Esterase (Negative) Urine RBC (0-5) /hpf Urine WBC (0-5) /hpf Ur Epithelial Cells (0-5) /hpf Urine Bacteria (FEW) /hpf Urine Mucus (FEW) /hpf Urine Opiates Screen (NEGATIVE) Ur Buprenorphine Scrn (NEGATIVE) Ur Oxycodone Screen (NEGATIVE) Urine Methadone Screen (NEGATIVE) Ur Propoxyphene Screen (NEGATIVE) Ur Barbiturates Screen (NEGATIVE) Ur Tricyclics Screen (NEGATIVE) Ur Phencyclidine Scrn (NEGATIVE) Ur Amphetamine Screen (NEGATIVE) U Methamphetamines Scrn (NEGATIVE) U Benzodiazepines Scrn (NEGATIVE) U Cocaine Metab Screen (NEGATIVE) U Marijuana (THC) Screen (NEGATIVE) Ethyl Alcohol 0.32 (0.00) gm% 07/18/16 07/18/16 Range/Units 16:00 16:00 WBC (3.98-10.04) K/mm3 RBC (3.98-5.22) M/mm3 Hgb (11.2-15.7) gm/L Hct (34.1-44.9) % MCV (79.4-94.8) fl MCH (25.6-32.2) pg MCHC (32.2-35.5) g/dl RDW Std Deviation (36.4-46.3) fL Plt Count (182-369) K/mm3 MPV (9.4-12.3) fl Neut % (Auto) (34.0-71.1) % Lymph % (Auto) (19.3-51.7) % Rice % (Auto) (4.7-12.5) % Eos % (Auto) (0.7-5.8) Baso % (Auto) (0.1-1.2) % Neut # (Auto) (1.56-6.13) K/mm3 Lymph # (Auto) (1.18-3.74) K/mm3 Rice # (Auto) (0.24-0.36) K/mm3 Eos # (Auto) (0.04-0.36) K/mm3 Baso # (Auto) (0.01-0.08) K/mm3 Sodium (136-145) mEq/L Potassium (3.5-5.1) mEq/L Chloride (98-107) mEq/L Carbon Dioxide (21-32) mEq/L Anion Gap (5-15) BUN (7-18) mg/dL Creatinine (0.55-1.02) mg/dL Est Cr Clr Drug Dosing Estimated GFR (MDRD) (>60) mL/min BUN/Creatinine Ratio (14-18) Glucose (74-106) mg/dL Calcium (8.5-10.1) mg/dL Magnesium (1.8-2.4) mg/dl Total Bilirubin (0.2-1.0) mg/dL AST (15-37) U/L ALT (14-59) U/L Alkaline Phosphatase (46-116) U/L Total Protein (6.4-8.2) g/dl Albumin (3.4-5.0) g/dl Globulin gm/dL Albumin/Globulin Ratio (1-2) TSH 3rd Generation (0.358-3.74) uIU/mL Urine Color Yellow (Yellow) Urine Appearance Clear (Clear) Urine pH 7.0 (5.0-8.0) Ur Specific [place] 1.010 (1.005-1.030) Urine Protein Negative (Negative) Urine Glucose (UA) Negative (Negative) Urine Ketones Negative (Negative) Urine Occult Blood Negative (Negative) Urine Nitrite Negative (Negative) Urine Bilirubin Negative (Negative) Urine Urobilinogen 0.2 (0.2-1.0) Ur Leukocyte Esterase Negative (Negative) Urine RBC Not seen (0-5) /hpf Urine WBC Not seen (0-5) /hpf Ur Epithelial Cells Not seen (0-5) /hpf Urine Bacteria Rare (FEW) /hpf Urine Mucus Not seen (FEW) /hpf Urine Opiates Screen Negative (NEGATIVE) Ur Buprenorphine Scrn Negative (NEGATIVE) Ur Oxycodone Screen Negative (NEGATIVE) Urine Methadone Screen Negative (NEGATIVE) Ur Propoxyphene Screen Negative (NEGATIVE) Ur Barbiturates Screen Negative (NEGATIVE) Ur Tricyclics Screen Negative (NEGATIVE) Ur Phencyclidine Scrn Negative (NEGATIVE) Ur Amphetamine Screen Negative (NEGATIVE) U Methamphetamines Scrn Negative (NEGATIVE) U Benzodiazepines Scrn Presumptive positive H (NEGATIVE) U Cocaine Metab Screen Negative (NEGATIVE) U Marijuana (THC) Screen Negative (NEGATIVE) Ethyl Alcohol (0.00) gm% Medications Generic Name Dose Route Start Last Admin Trade Name Freq PRN Reason Stop Dose Admin Chlordiazepoxide HCl 25 mg 07/19/16 09:00 Librium PO TID TANYA Chlordiazepoxide HCl 25 mg 07/18/16 21:42 Librium PO 07/18/16 21:43 ONETIME ONE Diazepam 5 mg 07/18/16 21:11 Valium IVPUSH Q6H PRN Anxiety Enoxaparin Sodium 40 mg 07/19/16 09:00 Lovenox SUBCUT DAILY [facility] Folic Acid 1 mg 07/19/16 09:00 Folic Acid PO DAILY [facility] Haloperidol Lactate 5 mg 07/18/16 21:12 Haldol IVPUSH Q8H PRN restlessness Lactated Ringer's 1,000 mls @ 125 mls/hr 07/18/16 21:30 Ringers, Lactated IV ASDIRECTED [facility] Multivitamins/Minerals 10 ml 07/19/16 09:00 M.V.I. Adult IV DAILY [facility] Sodium Chloride 10 ml 07/18/16 15:46 07/18/16 15:47 Saline Flush FLUSH 10 ml ASDIRECTED PRN Administration Keep Vein Open Thiamine HCl 100 mg 07/19/16 09:00 Vitamin B-1 IV DAILY [facility] Discontinued Medications Generic Name Dose Route Start Last Admin Trade Name Freq PRN Reason Stop Dose Admin Diazepam Confirm 07/18/16 20:44 07/18/16 21:40 Valium Administered 07/18/16 20:45 5 mg Dose Administration 10 mg .ROUTE .STK-MED ONE Haloperidol Lactate 5 mg 07/18/16 15:45 07/18/16 15:47 Haldol IM 07/18/16 15:46 5 mg ONETIME ONE Administration Haloperidol Lactate Confirm 07/18/16 15:46 07/18/16 18:56 Haldol Administered 07/18/16 15:47 Not Given Dose 5 mg .ROUTE .STK-MED ONE Sodium Chloride 1,000 mls @ 999 mls/hr 07/18/16 17:46 07/18/16 17:53 Normal Saline IV 07/18/16 18:46 999 mls/hr ONETIME ONE Administration Lactated Ringer's Confirm 07/18/16 21:23 07/18/16 21:41 Ringers, Lactated Administered 07/18/16 21:24 125 ml Dose Administration 1,000 mls @ as directed .ROUTE .STK-MED ONE Re-Assessment/Re-Exam: Ordered Haldol 5mg IM since patient is noncooperative in allowing IV and blood work to be obtained. Once calmed down IV will be placed with labs obtained. Labs/studies include: basic labs, ETOH, urine drug tox, TSH, and and EKG. EKG: Sinus Rhythm rate 95, WV 129, QTc 440, Normal P-Limon, no acute ST changes. 1657 Labs reviewed: CBC essentially normal. NA 144, K 3.8, Cr 0.9, AST 63, ALT 73, TSH 0.328, UA neg infection, Tox screen positive for benzo's, ETOH 0.32. 1715 Reassessment, patient resting comfortably with no complaints.Vital signs: BP 101/62 HR 92, SPO2 91%. Discussed patient with Travis Winter Treatment Counselor. She is unable to see the patient in the E.D. this evening. If admitted she will see the patient in the hospital. [address] Gonzales. She has agreed to admit the patient. Requests inpatient ICU. Orders for admission placed. Mg was 1.9. 2000 Patient per is requesting to leave. is requesting involuntary committal be placed. 24hr Emergency hold has been completed. Patient was instructed she was placed on 24hr emergency hold and she voiced understanding. Patient transferred to the floor. Departure - Departure Time of Disposition: 18:42 Disposition: DC/Tfer to Acute Hospital 02 Condition: fair Clinical Impression: Drug abuse, Alcohol abuse, Panic disorder, Depressive disorder - My Orders Last 24 Hours: My Active Orders 07/18/16 15:46 Peripheral IV Care [RC] . DIRECTED Sodium Chloride 0.9% [Saline Flush] 10 ml FLUSH ASDIRECTED PRN Peripheral IV Insertion Adult [OM.PC] Stat - Assessment/Plan Last 24 Hours: My Active Orders 07/18/16 15:46 Peripheral IV Care [RC] . DIRECTED Sodium Chloride 0.9% [Saline Flush] 10 ml FLUSH ASDIRECTED PRN Peripheral IV Insertion Adult [OM.PC] Stat
[2016-07-18] MEDS ORDERED: Sodium Chloride 0.9% 1,000 ML IV ONE (17:46)
[2016-07-18] MEDS ORDERED: Lactated Ringers 1,000 ML ONE (21:23)
[2016-07-18] MEDS ORDERED: Lactated Ringers 1,000 ML IV SCH (21:30)
--- NOTE | 2016-07-18 21:34 | PCM.HP ---
H&P History of Present Illness - General Date of Service: 07/18/16 Admit Problem/Dx: Admission Diagnosis/Problem Admission Diagnosis/Problem Alcohol abuse Source of Information: Provider History Limitations: Reports: No limitations - History of Present Illness Initial Comments - Free Text/Narative: 46 year old female with history of substance abuse including ETOH and Ativan. She reportedly wanted to undergo detox treatment before trying to sign out AMA. A 24 hour hold has been placed, if the patient tries to leave, she will be put in detention. The FERN is 0.32; there is a reported history of depression and anxiety. Onset of Symptoms: Reports: unknown/unsure Duration of Symptoms: Reports: Day(s):, Getting worse Location: Reports: generalized Quality: Reports: Same as previous episode Severity: moderate Improves with: Reports: Medication Worsens with: Reports: Other (alcohol) Associated Symptoms: Reports: other (agitation) - Related Data Allergies/Adverse Reactions: Allergies Allergy/AdvReac Type Severity Reaction Status Date / Time No Known Allergies Allergy Verified 07/18/16 15:40 Home Medications: Home Meds LORazepam [LORazepam] 1 mg PO BID 02/05/16 [History] Propranolol [Inderal] 20 mg PO BID 06/08/16 [History] Lisinopril 20 mg PO DAILY 07/14/16 [History] Past Medical History Cardiovascular History: Reports: Hypertension, Other (see below) Other Cardiovascular History: "clotting disorder- kota's syndrome" Respiratory History: Reports: Sleep apnea Other Respiratory History: sleeps with cpap Genitourinary History: Reports: UTI, recurrent 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: Musculoskeletal History: Reports: Other (see below) Other Musculoskeletal History: injury to L shoulder Neurological History: Reports: Migraines Other Neuro History: ocular migraines Psychiatric History: Reports: Addiction, Anxiety Other Psychiatric History: alcohol addiction Endocrine/Metabolic History: Reports: Obesity/BMI 30+ - Infectious Disease History Infectious Disease History: Reports: Chicken pox, Influenza, Measles, Other ( see below) Other Infectious Disease History: west nile virus - Past Surgical History HEENT Surgical History: Reports: Naso-sinus surgery Female Surgical History: Reports: D&C, Endometrial ablation Social & Family History - Family History Family Medical History: Noncontributory - Tobacco Use Smoking Status *Q: Unknown Ever Smoked Second Hand Smoke Exposure: No - Caffeine Use Caffeine Use: Reports: None - Alcohol Use Days Per Week of Alcohol Use: 7 Number of Drinks Per Day: 7 Total Drinks Per Week: 49 Date of Last Drink: 07/18/16 - Recreational Drug Use Recreational Drug Use: No Drug Use in Last 12 Months: No Recreational Drug Type: Reports: Benzodiazepines Other Recreational Drug Type: has hx of abusing ativan Recreational Drug Use Frequency: Daily - Living Situation & Occupation Living situation: Reports: , with spouse Occupation: unemployed H&P Review of Systems - Review of Systems: Review Of Systems: See Below General: Reports: no symptoms Pulmonary: Reports: No Symptoms Cardiovascular: Reports: palpitations, lightheadedness Gastrointestinal: Reports: No symptoms Genitourinary: Reports: no symptoms Musculoskeletal: Reports: no symptoms Skin: Reports: no symptoms Psychiatric: Reports: depression, anxiety, agitation, cravings, hallucinations ( auditory), hallucinations (visual) Neurological: Reports: Difficulty Walking, Weakness Hematologic/Lymphatic: Reports: no symptoms Immunologic: Reports: no symptoms Exam - Exam Exam: See Below - Vital Signs Vital Signs: Last Vital Signs Temp 37.1 C 07/18/16 20:30 Pulse 105 H 07/18/16 15:34 Resp 17 07/18/16 21:09 BP 111/85 07/18/16 20:30 Pulse Ox 94 L 07/18/16 21:09 Weight: 91.807 kg - Exam Quality Assessment: DVT prophylaxis General: lethargic. No: alert HEENT: EOMI, Nares patent, Normal nasal septum, Pupils equal, Pupils reactive, PERRLA Neck: supple, trachea midline Lungs: Normal respiratory effort Cardiovascular: regular rate, tachycardia Abdomen: Normal Bowel Sounds, Soft (Female) Exam: Deferred Rectal (Female) Exam: Deferred Back Exam: normal inspection Extremities: normal pulses Skin: warm Neurological: cranial nerves intact Neuro Extensive - Mental Status: other (arrousible) Neuro Extensive - Motor, Sensory, Reflexes: CN II-XII intact Psychiatric: anxious, agitated, withdrawal symptoms - Patient Data Result Diagrams: 07/19/16 04:19 07/19/16 04:19 *Q Meaningful Use (ADM) - VTE *Q VTE Criteria *Q: - Stroke *Q Stroke Criteria *Q: - AMI *Q AMI Criteria *Q: - Problem List (1) Alcohol abuse SNOMED Code(s): 58225544 ICD Code: F10.10 - ALCOHOL ABUSE, UNCOMPLICATED Status: Acute Current Visit: Yes (2) Depressive disorder SNOMED Code(s): 28100546 ICD Code: F32.9 - MAJOR DEPRESSIVE DISORDER, SINGLE EPISODE, UNSPECIFIED Status: Acute Current Visit: Yes (3) Drug abuse SNOMED Code(s): 31078975 ICD Code: F19.10 - OTHER PSYCHOACTIVE SUBSTANCE ABUSE, UNCOMPLICATED Status : Acute Current Visit: Yes (4) Panic disorder SNOMED Code(s): 702226564, 614545689 ICD Code: F41.0 - PANIC DISORDER WITHOUT AGORAPHOBIA Status: Acute Current Visit: Yes (5) Alcohol intoxication SNOMED Code(s): 64747814 ICD Code: F10.129 - ALCOHOL ABUSE WITH INTOXICATION, UNSPECIFIED Status: Acute Current Visit: No Problem List Initiated/Reviewed/Updated: Yes Orders Last 24hrs: Active Orders 24 hr Category Date Time Status Antiembolic Devices [RC] PER UNIT ROUTINE Care 07/18/16 21:14 Ordered Aspiration Precautions [RC] ASDIRECTED Care 07/18/16 21:15 Ordered CIWAA Assessment [RC] ASDIRECTED Care 07/18/16 21:09 Ordered Vital Signs [RC] PER UNIT ROUTINE Care 07/18/16 21:09 Ordered Consult to Bb Shot Packer [CONS] Routine Cons 07/19/16 09:00 Ordered Clear Liquid Diet [DIET] Diet 07/18/16 Dinner Ordered BMP [BASIC METABOLIC PANEL,BMP] [CHEM] DAILY Lab 07/19/16 05:00 Ordered BMP [BASIC METABOLIC PANEL,BMP] [CHEM] DAILY Lab 07/20/16 05:00 Ordered BMP [BASIC METABOLIC PANEL,BMP] [CHEM] DAILY Lab 07/21/16 05:00 Ordered BMP [BASIC METABOLIC PANEL,BMP] [CHEM] DAILY Lab 07/22/16 05:00 Ordered CBC WITH AUTO DIFF [HEME] DAILY Lab 07/19/16 05:00 Ordered CBC WITH AUTO DIFF [HEME] DAILY Lab 07/20/16 05:00 Ordered CBC WITH AUTO DIFF [HEME] DAILY Lab 07/21/16 05:00 Ordered CBC WITH AUTO DIFF [HEME] DAILY Lab 07/22/16 05:00 Ordered MAGNESIUM [CHEM] DAILY Lab 07/19/16 05:00 Ordered MAGNESIUM [CHEM] DAILY Lab 07/20/16 05:00 Ordered MAGNESIUM [CHEM] DAILY Lab 07/21/16 05:00 Ordered MAGNESIUM [CHEM] DAILY Lab 07/22/16 05:00 Ordered Diazepam [Valium] Med 07/18/16 21:11 Ordered 5 mg IVPUSH Q6H PRN Enoxaparin [Lovenox] Med 07/19/16 09:00 Ordered 40 mg SUBCUT DAILY Folic Acid Med 07/19/16 09:00 Ordered 1 mg PO DAILY Haloperidol Lactate [Haldol] Med 07/18/16 21:12 Ordered 5 mg IVPUSH Q8H PRN Lactated Ringers @ 125 MLS/HR(1000ml Bag) Med 07/18/16 21:30 Ordered Lactated Ringers [Ringers, Lactated] 1,000 ml IV ASDIRECTED MVI, Adult with Vitamin K [M.V.I. Adult] Med 07/19/16 09:00 Ordered 10 ml IV DAILY Thiamine [Vitamin B-1] Med 07/19/16 09:00 Ordered 100 mg IV DAILY chlordiazePOXIDE [Librium] Med 07/19/16 09:00 Ordered 25 mg PO TID Seizure Precautions [OM.PC] Routine Oth 07/18/16 21:15 Ordered CEFERINO Hose [Antiembolic Hose] [OM.PC] Routine Oth 07/18/16 21:14 Ordered Medication Orders Chlordiazepoxide HCl (Librium) 25 mg PO TID TANYA Diazepam (Valium) 5 mg IVPUSH Q6H PRN PRN Reason: Anxiety Enoxaparin Sodium (Lovenox) 40 mg SUBCUT DAILY TANYA Folic Acid (Folic Acid) 1 mg PO DAILY TANYA Haloperidol Lactate (Haldol) 5 mg IVPUSH Q8H PRN PRN Reason: restlessness Lactated Ringer's (Ringers, Lactated) 1,000 mls @ 125 mls/hr IV ASDIRECTED TANYA Multivitamins/Minerals (M.V.I. Adult) 10 ml IV DAILY TANYA Sodium Chloride (Saline Flush) 10 ml FLUSH ASDIRECTED PRN PRN Reason: Keep Vein Open Last Admin: 07/18/16 15:47 Dose: 10 ml Thiamine HCl (Vitamin B-1) 100 mg IV DAILY [facility] Assessment/Plan Comment:: Impression: Alcohol dependence/intoxication Benzodiazepine Abuse Psychiatric history Anxiety/Depression Chronic HTN MARYAM on CPAP Obesity Antiphospholipid syndrome Plan: 24 hour hold, if patient leaves will be arrested. DVT/GI prophylaxis CIWA protocol IVF Replace electrolytes Consult Yuri-depression/anxiety Consult Travis Winter-addiction evaluation Consult SW Will need inpatient rehab if agreeable.
[2016-07-18] MEDS ORDERED: chlordiazePOXIDE 25 MG Cap PO ONE (21:42)
[2016-07-18] MEDS: Temazepam 30 MG Cap PO PRN (21:56)
[2016-07-19] MEDS: Haloperidol Lactate 5 MG/ML SDV IVPUSH PRN ×3 (01:50→21:01)
[2016-07-19] MEDS: Ondansetron 4 MG/2 ML SDV IV PRN (02:10)
[2016-07-19] MEDS ORDERED: MVI, Adult with Vitamin K 10 ML in Lactated Ringers 1,000 ML IV ONE ×2 (08:00)
[2016-07-19] MEDS: Enoxaparin 40 MG/0.4 ML Syringe SUBCUT SCH (08:03)
[2016-07-19] MEDS: chlordiazePOXIDE 25 MG Cap PO SCH ×4 (08:04→21:01)
[2016-07-19] MEDS: Folic Acid 1 MG Tab PO SCH (08:04)
[2016-07-19] MEDS: Metoprolol Tartrate 25 MG Tab PO SCH ×2 (08:05→21:00)
[2016-07-19] MEDS ORDERED: Thiamine 200 MG/2 ML MDV IV SCH (09:00)
[2016-07-19] MEDS ORDERED: MVI, Adult with Vitamin K 10 ML SDV IV SCH (09:00)
--- NOTE | 2016-07-19 09:43 | PCM.PN ---
- General Info Date of Service: 07/19/16 Admission Dx/Problem (Free Text): Patient wants to leave but will stay for now; consults are scheduled with substance abuse and psychiatry. Functional Status: Reports: tolerating diet, urinating - Review of Systems General: Reports: No Symptoms HEENT: Reports: no symptoms Pulmonary: Reports: no symptoms Cardiovascular: Reports: No Symptoms Gastrointestinal: Reports: No symptoms Genitourinary: Reports: no symptoms Musculoskeletal: Reports: no symptoms Skin: Reports: no symptoms Neurological: Reports: No Symptoms Psychiatric: Reports: depression, anxiety - Patient Data Vitals - most recent: Last Vital Signs Temp 37.1 C 07/18/16 20:30 Pulse 92 07/19/16 08:05 Resp 17 07/18/16 21:09 BP 141/94 H 07/19/16 08:05 Pulse Ox 93 L 07/19/16 05:00 Weight - most recent: 91.9 kg I&O - last 24 hours: Intake & Output 07/18/16 07/19/16 07/19/16 22:59 06:59 14:59 Intake Total 200 500 Output Total 300 550 Balance -100 -50 Lab Results last 24 hrs: Laboratory Results - last 24 hr 07/19/16 07/19/16 Range/Units 04:19 04:19 WBC 6.36 (3.98-10.04) K/mm3 RBC 4.43 (3.98-5.22) M/mm3 Hgb 13.9 (11.2-15.7) gm/L Hct 40.3 (34.1-44.9) % MCV 91.0 (79.4-94.8) fl MCH 31.4 (25.6-32.2) pg MCHC 34.5 (32.2-35.5) g/dl RDW Std Deviation 40.7 (36.4-46.3) fL Plt Count 276 (182-369) K/mm3 MPV 9.7 (9.4-12.3) fl Neut % (Auto) 40.6 (34.0-71.1) % Lymph % (Auto) 44.8 (19.3-51.7) % Mcdonough % (Auto) 10.2 (4.7-12.5) % Eos % (Auto) 3.6 (0.7-5.8) Baso % (Auto) 0.8 (0.1-1.2) % Neut # (Auto) 2.58 (1.56-6.13) K/mm3 Lymph # (Auto) 2.85 (1.18-3.74) K/mm3 Mcdonough # (Auto) 0.65 H (0.24-0.36) K/mm3 Eos # (Auto) 0.23 (0.04-0.36) K/mm3 Baso # (Auto) 0.05 (0.01-0.08) K/mm3 Sodium 141 (136-145) mEq/L Potassium 3.7 (3.5-5.1) mEq/L Chloride 104 (98-107) mEq/L Carbon Dioxide 24 (21-32) mEq/L Anion Gap 16.7 H (5-15) BUN 19 H (7-18) mg/dL Creatinine 0.8 (0.55-1.02) mg/dL Est Cr Clr Drug Dosing 79.91 mL/min Estimated GFR (MDRD) > 60 (>60) mL/min BUN/Creatinine Ratio 23.8 H (14-18) Glucose 123 H (74-106) mg/dL Calcium 7.6 L (8.5-10.1) mg/dL Magnesium 1.6 L (1.8-2.4) mg/dl Med Orders - Current: Current Medications Chlordiazepoxide HCl (Librium) 25 mg PO TID [facility] Last Admin: 07/19/16 08:04 Dose: 25 mg Diazepam (Valium) 5 mg IVPUSH Q6H PRN PRN Reason: Anxiety Last Admin: 07/19/16 04:37 Dose: 5 mg Enoxaparin Sodium (Lovenox) 40 mg SUBCUT DAILY [facility] Last Admin: 07/19/16 08:03 Dose: 40 mg Folic Acid (Folic Acid) 1 mg PO DAILY [facility] Last Admin: 07/19/16 08:04 Dose: 1 mg Haloperidol Lactate (Haldol) 5 mg IVPUSH Q8H PRN PRN Reason: restlessness Last Admin: 07/19/16 08:28 Dose: 5 mg Multivitamins/Minerals 10 ml/ (Lactated Ringer's) 1,010 mls @ 125 mls/hr IV ONETIME ONE Stop: 07/19/16 16:04 Last Admin: 07/19/16 08:27 Dose: 125 mls/hr Lactated Ringer's (Ringers, Lactated) 1,000 mls @ 125 mls/hr IV ASDIRECTED [facility] Metoprolol Tartrate (Lopressor) 25 mg PO Q12HR [facility] Last Admin: 07/19/16 08:05 Dose: 25 mg Ondansetron HCl (Zofran) 4 mg IV Q8H PRN PRN Reason: Nausea/Vomiting Last Admin: 07/19/16 02:10 Dose: 4 mg Sodium Chloride (Saline Flush) 10 ml FLUSH ASDIRECTED PRN PRN Reason: Keep Vein Open Last Admin: 07/18/16 15:47 Dose: 10 ml Temazepam (Restoril) 30 mg PO BEDTIME PRN PRN Reason: Insomnia Last Admin: 07/18/16 21:56 Dose: 30 mg Thiamine HCl (Vitamin B-1) 100 mg IV DAILY [facility] Last Admin: 07/19/16 08:04 Dose: 100 mg Discontinued Medications Chlordiazepoxide HCl (Librium) 25 mg PO ONETIME ONE Stop: 07/18/16 21:43 Last Admin: 07/18/16 21:56 Dose: 25 mg Diazepam (Valium) Confirm Administered Dose 10 mg .ROUTE .STK-MED ONE Stop: 07/18/16 20:45 Last Admin: 07/18/16 21:40 Dose: 5 mg Haloperidol Lactate (Haldol) 5 mg IM ONETIME ONE Stop: 07/18/16 15:46 Last Admin: 07/18/16 15:47 Dose: 5 mg Haloperidol Lactate (Haldol) Confirm Administered Dose 5 mg .ROUTE .STK-MED ONE Stop: 07/18/16 15:47 Last Admin: 07/18/16 18:56 Dose: Not Given Sodium Chloride (Normal Saline) 1,000 mls @ 999 mls/hr IV ONETIME ONE Stop: 07/18/16 18:46 Last Admin: 07/18/16 17:53 Dose: 999 mls/hr Lactated Ringer's (Ringers, Lactated) 1,000 mls @ 125 mls/hr IV ASDIRECTED [facility] Last Admin: 07/18/16 21:57 Dose: 125 mls/hr Lactated Ringer's (Ringers, Lactated) Confirm Administered Dose 1,000 mls @ as directed .ROUTE .STK-MED ONE Stop: 07/18/16 21:24 Last Admin: 07/18/16 21:41 Dose: 125 ml - Exam Quality Assessment: DVT prophylaxis General: alert, oriented, no acute distress HEENT: Pupils equal, Pupils reactive, EOMI Neck: supple, trachea midline Lungs: Normal respiratory effort Cardiovascular: Regular Rate, Tachycardia Abdomen: bowel sounds present, soft, no tenderness, no distension (Female) Exam: Deferred Back Exam: normal inspection Extremities: normal pulses Skin: warm Neurological: no new focal deficit, normal speech Psy/Mental Status: alert, anxious, agitated (mild) - Problem List & Annotations (1) Alcohol abuse SNOMED Code(s): 53904598 Code(s): F10.10 - ALCOHOL ABUSE, UNCOMPLICATED Status: Acute Current Visit: Yes (2) Depressive disorder SNOMED Code(s): 65264995 Code(s): F32.9 - MAJOR DEPRESSIVE DISORDER, SINGLE EPISODE, UNSPECIFIED Status: Acute Current Visit: Yes (3) Drug abuse SNOMED Code(s): 18575393 Code(s): F19.10 - OTHER PSYCHOACTIVE SUBSTANCE ABUSE, UNCOMPLICATED Status : Acute Current Visit: Yes (4) Panic disorder SNOMED Code(s): 757472904, 120468174 Code(s): F41.0 - PANIC DISORDER WITHOUT AGORAPHOBIA Status: Acute Current Visit: Yes (5) Alcohol intoxication SNOMED Code(s): 71621795 Code(s): F10.129 - ALCOHOL ABUSE WITH INTOXICATION, UNSPECIFIED Status: Acute Current Visit: No - Problem List Review Problem List Initiated/Reviewed/Updated: Yes - My Orders Last 24 Hours: My Active Orders 07/18/16 21:09 CIWAA Assessment [RC] Q1HR Vital Signs [RC] Q4HR 07/18/16 21:11 Diazepam [Valium] 5 mg IVPUSH Q6H PRN 07/18/16 21:12 Haloperidol Lactate [Haldol] 5 mg IVPUSH Q8H PRN 07/18/16 21:14 Antiembolic Devices [RC] PER UNIT ROUTINE CEFERINO Hose [Antiembolic Hose] [OM.PC] Routine 07/18/16 21:15 Aspiration Precautions [RC] ASDIRECTED Seizure Precautions [OM.PC] Routine 07/18/16 21:43 Temazepam [Restoril] 30 mg PO BEDTIME PRN 07/18/16 22:18 Ondansetron [Zofran] 4 mg IV Q8H PRN 07/18/16 Dinner Clear Liquid Diet [DIET] 07/19/16 08:00 MVI, Adult with Vitamin K [M.V.I. Adult] 10 ml Lactated Ringers [Ringers, Lactated] 1,000 ml IV ONETIME 07/19/16 09:00 Consult to Manager Trust [CONS] Routine Enoxaparin [Lovenox] 40 mg SUBCUT DAILY Folic Acid 1 mg PO DAILY Metoprolol Tartrate [Lopressor] 25 mg PO Q12HR Thiamine [Vitamin B-1] 100 mg IV DAILY chlordiazePOXIDE [Librium] 25 mg PO TID 07/19/16 16:00 Lactated Ringers [Ringers, Lactated] 1,000 ml IV ASDIRECTED 07/20/16 05:00 BMP [BASIC METABOLIC PANEL,BMP] [CHEM] DAILY CBC WITH AUTO DIFF [HEME] DAILY MAGNESIUM [CHEM] DAILY 07/21/16 05:00 BMP [BASIC METABOLIC PANEL,BMP] [CHEM] DAILY CBC WITH AUTO DIFF [HEME] DAILY MAGNESIUM [CHEM] DAILY 07/22/16 05:00 BMP [BASIC METABOLIC PANEL,BMP] [CHEM] DAILY CBC WITH AUTO DIFF [HEME] DAILY MAGNESIUM [CHEM] DAILY - Plan Plan:: Impression: Alcohol dependence/intoxication Benzodiazepine Abuse Psychiatric history Anxiety/Depression Chronic HTN MARYAM on CPAP Obesity Antiphospholipid syndrome Plan: 24 hour hold, if patient leaves will be arrested. DVT/GI prophylaxis CIWA protocol IVF Replace electrolytes Consult Yuri-depression/anxiety, pending Consult Travis Winter-addiction evaluation, pending Consult Inpatient rehab, TBA.
[2016-07-19] MEDS ORDERED: Magnesium Sulfate/Water 2 GM in Premix Bag 1 BAG IV ONE (09:57)
[2016-07-19] MEDS: Prochlorperazine 10 MG/2 ML SDV IVPUSH SCH ×3 (12:43→22:53)
[2016-07-19] MEDS ORDERED: Sodium Chloride 0.9% 10 ML Syringe FLUSH PRN (12:57)
[2016-07-19] MEDS ORDERED: Lactated Ringers 1,000 ML IV SCH (16:00)
--- NOTE | 2016-07-19 16:01 | CONS ---
CONSULTING PHYSICIAN: Travis Winter LAC DATE OF CONSULTATION: 07/19/2016 TIME: 3:21 p.m. REASON FOR CONSULTATION: The patient is a 46-year-old female, who was admitted to [facility] on 07/18/2016 with intoxication and panic attack. Her FERN was a 0.32. An alcohol and drug consultation was requested by her medical treatment team. SOURCE OF INFORMATION: Hospital records, background check, and the patient's self report. HISTORY OF PRESENT ILLNESS: The patient presented today minimally cooperative for the alcohol and drug evaluation. While talking with the patient regarding her substance use, anxiety, and current medical condition, the patient was adamant that she did not want the hospital to intervene in any way and refused substance abuse treatment. She was asked about her request for treatment when she was in the emergency room the night prior as well as her family's request for an involuntary commitment. The patient reported that her family did not tell the emergency room staff that they wanted an involuntary commitment and she went on to say that she did not tell the emergency staff that she wanted treatment either. The patient states "I promise you I will not drink again. I will do my counseling at [facility] with my counselor, but I am not going to treatment." When asked what counselor she was seeing at [facility], she did not remember who it was. The patient was asked if she would consent to my speaking with her family to clarify what the family's wishes were with regard to treatment. The patient refused to sign an CARMEN to speak with her family and terminated the evaluation. The patient's autonomy was respected and the conversation was concluded. MARCUS Woody and Dr. Gonzales were consulted regarding the outcome of the patient's evaluation. A petition for involuntary commitment, although beneficial was ruled out, as the patient was unamenable to the alcohol and drug evaluation and terminated our conversation. MARCUS Woody will speak with the patient's family to coordinate discharge and contact me should the family choose to speak with me and follow through with the commitment. DIAGNOSES: The patient meets DSM-5 criteria for the following diagnosis: 1. F10.229, alcohol intoxication. 2. F10.20, alcohol use disorder, severe. 3. F13.20, sedative hypnotic or anxiolytic use disorder, severe. RECOMMENDATIONS: The patient meets ASAM criteria for a level 3.1, however, she is unamenable to an alcohol and drug evaluation. The patient was advised that should she present to [facility] in the future with further alcohol or benzodiazepine symptoms that a petition for involuntary committal will be executed. EMY /[id number]
[2016-07-19] MEDS: Temazepam 30 MG Cap PO PRN (21:00)
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
--- NOTE | 2016-07-20 02:54 | CONS ---
CONSULTING PHYSICIAN: Jai Welch MD DATE OF CONSULTATION: 07/19/2016 This is a 60-minute inpatient clinical event. IDENTIFICATION: The patient is a 46-year-old, female who is admitted to the [facility] MICU in [place], [place] on 07/18/2016. She is seen for psychiatric evaluation. CHIEF COMPLAINT: "I was drinking a lot of alcohol." HISTORY OF PRESENT ILLNESS: The patient is a 46-year-old female, who reports that she was "drinking a lot and I wasn't feeling good." She states she asked her to bring her to the emergency room. When they assessed her, they admitted her because "my blood alcohol was pretty high, it was 2.9." The patient states she has been drinking and she states that she binge drinks "every few days" where she will drink 7 out of 10 drinks of hard liquor. She states this has been going on for about "4-5 months" and started really in earnest "when my doctor told me that I had to go off my Ativan. I have a lot of anxiety." Evidently, the patient's primary nurse practitioner Dr. Villanueva, at [facility] is concerned about the patient's Ativan use. The patient has been taking 1 mg b.i.d. "for like 7 years" and she states that it controls her anxiety pretty good, but about 3-4 months ago according to the patient, Dr. Villanueva had informed the patient that they would be tapering this medication, and as a result, the patient had breakthrough anxiety and she began drinking, and again according to her account, the drinking became more of a problem as the Ativan was decreased. She denies that she has ever been in treatment before. She denies that she has ever gone to . She does not feel that she needs treatment. 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 She is not wanting treatment at this time. She states her main issue is anxiety. She denies any depression. She denies any suicidal or homicidal ideation. She denies any psychotic, delusional, or paranoid symptoms. She denies any illicit substances complicating the clinical picture. MEDICATIONS: Prior to admission, 1. Propranolol. 2. Lisinopril. Since admission, the patient has been started on, 1. Valium 5 mg q.6 hours. 2. Haldol 5 mg q.8 hours. 3. Librium 25 mg t.i.d. 4. Thiamine 100 mg daily. 5. Folic acid 1 mg daily. ALLERGIES: No known drug allergies. PAST MEDICAL HISTORY: 1. Hypertension. 2. History of sleep apnea. 3. Possible history of hypothyroid, as the patient has low thyroid on admission. REVIEW OF SYSTEMS: Aside from cardiovascular, neuro, and endocrine, all other major organ systems are negative at this point in time for acute difficulties or complications. PAST PSYCHIATRIC AND CD HISTORY: The patient reports one psychiatric hospitalization in 2016 for 3 days, again because she was drinking heavily. Denies any chemical dependency treatment. Denies ever having attended AA. Denies any detox admissions or DWIs. She denies any previous suicide attempts, self-injurious behaviors, or eating disorder history. PAST PSYCHIATRIC MEDICATION HISTORY: Includes Ativan. PAST PSYCHIATRIC DIAGNOSIS: Includes anxiety according to the patient and staff is reporting the patient may have a remote history of bipolar affect disease. PRIMARY NURSE PRACTITIONER: Amirah Villanueva NP at [facility]. SOCIAL HISTORY: The patient was born and raised in [place]. Highest level of education is a GED. She came out to [place] after she met her and got . She has been x1 for 14 years. She has 2 daughters, from the union 3 grandchildren. Her is a joshi and then he also works as a welder and fitter at [employer]. 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 She denies any prior service or current legal difficulties. She considers herself an atheist in terms of her mikey formation. 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 MENTAL STATUS EXAM: The patient is a 46-year-old, white female in no apparent distress. Speech is of regular rate and rhythm. The patient is cognitively oriented x2 definitely to person and place. She does get the date right when she is looking at the calendar, but when asked what day it was the prior day, she does initially state the 16th rather than the 8th until she again looks at the calendar. Psychomotor activities within normal limits. There is no abnormal motor movements or tics observed. Gait and station are not observed. The patient is in the bed while during the inpatient psychiatric consult. Mood is anxious. Affect is cooperative overall for the purposes of the inpatient psychiatric consult. There is no behavioral or stated evidence of acute suicidal or homicidal ideation or acute psychotic delusional paranoid symptoms. Thought processes appear organized overall. There are no acute manic symptoms or loose associations evident. Judgment and insight do appear impaired in regard to the severity of her primary alcohol dependence and also for cognition. Motivation for help is fair to poor. VITAL SIGNS: At this moment vitals 158/96, 103, 22, and 98.6 degrees. IMPRESSION: Almo I: 1. Alcohol dependence, F10.20. 2. Anxiety disorder, NOS, F41.9. Almo II: None. Almo III: 1. Hypertension. 2. Sleep apnea. 3. Hypothyroidism. 4. Symptoms of alcohol withdrawal. Almo IV: Severe. Almo V: 50-55. PLAN: 1. Sobriety. 2. AA rep. 3. Pastoral guidance. 4. We will continue medications as dosed and prescribed since patient has been on the unit to help treat patients withdrawal symptoms and anxiety. 5. Recommend inpatient chemical dependency treatment for this patient going forward. 6. We would defer to patient's primary medical treatment team in terms of how this inpatient chemical dependency treatment is arranged. If the patient is refusing, would think that the patient does meet criteria for committal, especially if family is desiring that the patient receive treatment going forward. 7. We will continue to follow up with the patient on an as-needed basis while she remains on the unit. 8. We will follow up with the patient sooner if any complications in the interim. 9. Crisis plan is in place. EMY /[id number]
[2016-07-20] MEDS: Prochlorperazine 10 MG/2 ML SDV IVPUSH SCH ×3 (05:15→16:56)
[2016-07-20] MEDS: Metoprolol Tartrate 25 MG Tab PO SCH ×2 (08:56→20:04)
[2016-07-20] MEDS: Multivitamins,Therapeutic Tab PO SCH (08:58)
[2016-07-20] MEDS: Folic Acid 1 MG Tab PO SCH (08:58)
[2016-07-20] MEDS: Thiamine 100 MG Tab PO SCH (08:58)
[2016-07-20] MEDS: chlordiazePOXIDE 25 MG Cap PO SCH ×3 (08:58→20:04)
[2016-07-20] MEDS: Enoxaparin 40 MG/0.4 ML Syringe SUBCUT SCH ×2 (08:59→09:04)
[2016-07-20] MEDS: Haloperidol Lactate 5 MG/ML SDV IVPUSH PRN ×2 (12:06→20:03)
--- NOTE | 2016-07-20 13:41 | PCM.PN ---
- General Info Date of Service: 07/20/16 Functional Status: Reports: ambulating, urinating, new symptoms (diarrhea) - Review of Systems General: Reports: No Symptoms HEENT: Reports: no symptoms Pulmonary: Reports: no symptoms Cardiovascular: Reports: No Symptoms Gastrointestinal: Reports: Diarrhea Genitourinary: Reports: no symptoms Musculoskeletal: Reports: no symptoms Skin: Reports: no symptoms Neurological: Reports: No Symptoms Psychiatric: Reports: anxiety, agitation - Patient Data Vitals - most recent: Last Vital Signs Temp 37.2 C 07/20/16 11:50 Pulse 105 H 07/20/16 11:50 Resp 18 07/20/16 11:50 BP 143/78 H 07/20/16 11:50 Pulse Ox 95 07/20/16 11:50 Weight - most recent: 91.6 kg I&O - last 24 hours: Intake & Output 07/19/16 07/20/16 07/20/16 22:59 06:59 14:59 Intake Total 2177 400 Balance 2177 400 Lab Results last 24 hrs: Laboratory Results - last 24 hr 07/20/16 07/20/16 Range/Units 04:40 04:40 WBC 11.36 H (3.98-10.04) K/mm3 RBC 4.09 (3.98-5.22) M/mm3 Hgb 13.0 (11.2-15.7) gm/L Hct 37.5 (34.1-44.9) % MCV 91.7 (79.4-94.8) fl MCH 31.8 (25.6-32.2) pg MCHC 34.7 (32.2-35.5) g/dl RDW Std Deviation 40.0 (36.4-46.3) fL Plt Count 189 (182-369) K/mm3 MPV 10.1 (9.4-12.3) fl Neut % (Auto) 62.7 (34.0-71.1) % Lymph % (Auto) 27.6 (19.3-51.7) % [place] % (Auto) 5.9 (4.7-12.5) % Eos % (Auto) 3.3 (0.7-5.8) Baso % (Auto) 0.4 (0.1-1.2) % Neut # (Auto) 7.13 H (1.56-6.13) K/mm3 Lymph # (Auto) 3.13 (1.18-3.74) K/mm3 [place] # (Auto) 0.67 H (0.24-0.36) K/mm3 Eos # (Auto) 0.38 H (0.04-0.36) K/mm3 Baso # (Auto) 0.04 (0.01-0.08) K/mm3 Sodium 137 (136-145) mEq/L Potassium 3.3 L (3.5-5.1) mEq/L Chloride 104 (98-107) mEq/L Carbon Dioxide 26 (21-32) mEq/L Anion Gap 10.3 (5-15) BUN 13 (7-18) mg/dL Creatinine 1.0 (0.55-1.02) mg/dL Est Cr Clr Drug Dosing 63.93 mL/min Estimated GFR (MDRD) 60 (>60) mL/min BUN/Creatinine Ratio 13.0 L (14-18) Glucose 92 (74-106) mg/dL Calcium 7.8 L (8.5-10.1) mg/dL Magnesium 2.0 (1.8-2.4) mg/dl Med Orders - Current: Current Medications Chlordiazepoxide HCl (Librium) 25 mg PO TID [facility] Last Admin: 07/20/16 08:58 Dose: 25 mg Clonidine HCl (Catapres) 0.1 mg PO TID [facility] Diazepam (Valium) 5 mg IVPUSH Q6H PRN PRN Reason: Anxiety Last Admin: 07/19/16 21:01 Dose: 5 mg Enoxaparin Sodium (Lovenox) 40 mg SUBCUT DAILY [facility] Last Admin: 07/20/16 09:04 Dose: Not Given Folic Acid (Folic Acid) 1 mg PO DAILY [facility] Last Admin: 07/20/16 08:58 Dose: 1 mg Haloperidol Lactate (Haldol) 5 mg IVPUSH Q8H PRN PRN Reason: restlessness Last Admin: 07/20/16 12:06 Dose: 5 mg Lactated Ringer's (Ringers, Lactated) 1,000 mls @ 125 mls/hr IV ASDIRECTED [facility] Last Admin: 07/20/16 12:01 Dose: 125 mls/hr Metoprolol Tartrate (Lopressor) 25 mg PO Q12HR [facility] Last Admin: 05/10/17 08:56 Dose: 25 mg Multivitamins (Thera) 1 each PO DAILY [facility] Last Admin: 07/20/16 08:58 Dose: 1 each Ondansetron HCl (Zofran) 4 mg IV Q8H PRN PRN Reason: Nausea/Vomiting Last Admin: 07/19/16 02:10 Dose: 4 mg Prochlorperazine Edisylate (Compazine) 10 mg IVPUSH Q6H [facility] Last Admin: 07/20/16 12:00 Dose: 10 mg Sodium Chloride (Saline Flush) 10 ml FLUSH ASDIRECTED PRN PRN Reason: Keep Vein Open Last Admin: 07/20/16 12:04 Dose: 10 ml Temazepam (Restoril) 30 mg PO BEDTIME PRN PRN Reason: Insomnia Last Admin: 07/19/16 21:00 Dose: 30 mg Thiamine HCl (Vitamin B-1) 100 mg PO DAILY [facility] Last Admin: 07/20/16 08:58 Dose: 100 mg Discontinued Medications Chlordiazepoxide HCl (Librium) 25 mg PO ONETIME ONE Stop: 07/18/16 21:43 Last Admin: 07/18/16 21:56 Dose: 25 mg Diazepam (Valium) Confirm Administered Dose 10 mg .ROUTE .STK-MED ONE Stop: 07/18/16 20:45 Last Admin: 07/18/16 21:40 Dose: 5 mg Haloperidol Lactate (Haldol) 5 mg IM ONETIME ONE Stop: 07/18/16 15:46 Last Admin: 07/18/16 15:47 Dose: 5 mg Haloperidol Lactate (Haldol) Confirm Administered Dose 5 mg .ROUTE .STK-MED ONE Stop: 07/18/16 15:47 Last Admin: 07/18/16 18:56 Dose: Not Given Sodium Chloride (Normal Saline) 1,000 mls @ 999 mls/hr IV ONETIME ONE Stop: 07/18/16 18:46 Last Admin: 07/18/16 17:53 Dose: 999 mls/hr Lactated Ringer's (Ringers, Lactated) 1,000 mls @ 125 mls/hr IV ASDIRECTED [facility] Last Admin: 07/18/16 21:57 Dose: 125 mls/hr Lactated Ringer's (Ringers, Lactated) Confirm Administered Dose 1,000 mls @ as directed .ROUTE .STK-MED ONE Stop: 07/18/16 21:24 Last Admin: 07/18/16 21:41 Dose: 125 ml Multivitamins/Minerals 10 ml/ (Lactated Ringer's) 1,010 mls @ 125 mls/hr IV ONETIME ONE Stop: 07/19/16 16:04 Last Admin: 07/19/16 08:27 Dose: 125 mls/hr Magnesium Sulfate 2 gm/ Premix 50 mls @ 25 mls/hr IV ONETIME ONE Stop: 07/19/16 11:56 Last Admin: 07/19/16 12:57 Dose: 25 mls/hr Sodium Chloride (Saline Flush) 10 ml FLUSH ASDIRECTED PRN PRN Reason: Keep Vein Open Last Admin: 07/18/16 15:47 Dose: 10 ml Thiamine HCl (Vitamin B-1) 100 mg IV DAILY [facility] Last Admin: 07/19/16 08:04 Dose: 100 mg - Exam Quality Assessment: DVT prophylaxis General: alert, oriented, no acute distress HEENT: Pupils equal, Pupils reactive, EOMI Neck: supple, trachea midline Lungs: Normal respiratory effort Cardiovascular: Regular Rate, Tachycardia Abdomen: bowel sounds present, soft, no tenderness, no distension (Female) Exam: Deferred Back Exam: normal inspection Extremities: normal pulses Skin: warm Neurological: normal speech Psy/Mental Status: alert, anxious, depressed - Problem List & Annotations (1) Alcohol abuse SNOMED Code(s): 00128978 Code(s): F10.10 - ALCOHOL ABUSE, UNCOMPLICATED Status: Acute Current Visit: Yes (2) Depressive disorder SNOMED Code(s): 87808764 Code(s): F32.9 - MAJOR DEPRESSIVE DISORDER, SINGLE EPISODE, UNSPECIFIED Status: Acute Current Visit: Yes (3) Drug abuse SNOMED Code(s): 28870644 Code(s): F19.10 - OTHER PSYCHOACTIVE SUBSTANCE ABUSE, UNCOMPLICATED Status : Acute Current Visit: Yes (4) Panic disorder SNOMED Code(s): 519623065, 324714281 Code(s): F41.0 - PANIC DISORDER WITHOUT AGORAPHOBIA Status: Acute Current Visit: Yes (5) Alcohol intoxication SNOMED Code(s): 24980376 Code(s): F10.129 - ALCOHOL ABUSE WITH INTOXICATION, UNSPECIFIED Status: Acute Current Visit: No - Problem List Review Problem List Initiated/Reviewed/Updated: Yes - My Orders Last 24 Hours: My Active Orders 07/19/16 12:57 Sodium Chloride 0.9% [Saline Flush] 10 ml FLUSH ASDIRECTED PRN 07/19/16 13:00 Consult to Physician [CONS] Routine 07/19/16 16:00 Lactated Ringers [Ringers, Lactated] 1,000 ml IV ASDIRECTED 07/20/16 09:00 Multivitamins,Therapeutic [Thera] 1 each PO DAILY Thiamine [Vitamin B-1] 100 mg PO DAILY 07/20/16 15:00 cloNIDine [Catapres] 0.1 mg PO TID 07/20/16 Dinner Full Liquid Diet [DIET] 07/21/16 05:00 BMP [BASIC METABOLIC PANEL,BMP] [CHEM] DAILY CBC WITH AUTO DIFF [HEME] DAILY MAGNESIUM [CHEM] DAILY 07/22/16 05:00 BMP [BASIC METABOLIC PANEL,BMP] [CHEM] DAILY CBC WITH AUTO DIFF [HEME] DAILY MAGNESIUM [CHEM] DAILY - Plan Plan:: Impression: Alcohol dependence/intoxication Benzodiazepine Abuse Psychiatric history Anxiety/Depression Diarrhea Elevated WBC Chronic HTN MARYAM on CPAP Obesity Antiphospholipid syndrome Plan: CXR, 2 views Immodiun for diarrhea DVT/GI prophylaxis CIWA protocol IVF Replace electrolytes Consult Yuri-depression/anxiety Consult Travis Winter-addiction evaluation Consult SW Will need inpatient rehab, placement is pending.
[2016-07-20] MEDS: Potassium Chloride 10% 20 MEQ/15 ML Soln 30 ML UD Cup PO SCH ×2 (14:34→20:03)
[2016-07-20] MEDS: cloNIDine 0.1 MG Tab PO SCH ×2 (14:34→20:04)
--- NOTE | 2016-07-20 15:09 | CR ---
Chest: Two views of the chest were obtained. Comparison: Previous chest x-ray of 04/30/16. Heart size and mediastinum are normal. Lungs are clear. Bony structures are unremarkable for the patient's age. Impression: 1. Nothing acute is identified on two-view chest x-ray. Diagnostic code #1
[2016-07-20] MEDS: Loperamide 2 MG Cap PO PRN ×2 (16:56→20:04)
[2016-07-20] MEDS: Temazepam 30 MG Cap PO PRN (20:04)
[2016-07-20] MEDS: Saccharomyces Boulardii (Probiotic) 250 MG Cap PO SCH (20:05)
[2016-07-21] MEDS: Prochlorperazine 10 MG/2 ML SDV IVPUSH SCH ×5 (00:43→22:18)
[2016-07-21] MEDS: chlordiazePOXIDE 25 MG Cap PO SCH ×3 (08:23→20:21)
[2016-07-21] MEDS: Enoxaparin 40 MG/0.4 ML Syringe SUBCUT SCH (08:23)
[2016-07-21] MEDS: Saccharomyces Boulardii (Probiotic) 250 MG Cap PO SCH ×2 (08:23→20:21)
[2016-07-21] MEDS: Potassium Chloride 10% 20 MEQ/15 ML Soln 30 ML UD Cup PO SCH ×2 (08:23→20:21)
[2016-07-21] MEDS: cloNIDine 0.1 MG Tab PO SCH ×3 (08:24→20:21)
[2016-07-21] MEDS: Folic Acid 1 MG Tab PO SCH (08:24)
[2016-07-21] MEDS: Thiamine 100 MG Tab PO SCH (08:24)
[2016-07-21] MEDS: Metoprolol Tartrate 25 MG Tab PO SCH ×2 (08:26→20:21)
[2016-07-21] MEDS: Loperamide 2 MG Cap PO PRN ×2 (08:26→11:49)
[2016-07-21] MEDS: Multivitamins,Therapeutic Tab PO SCH (08:26)
--- NOTE | 2016-07-21 10:22 | PCM.PN ---
- General Info Date of Service: 07/21/16 Functional Status: Reports: tolerating diet - Review of Systems General: Reports: No Symptoms HEENT: Reports: no symptoms Pulmonary: Reports: no symptoms Cardiovascular: Reports: No Symptoms Gastrointestinal: Reports: No symptoms Genitourinary: Reports: no symptoms Musculoskeletal: Reports: no symptoms Skin: Reports: no symptoms Neurological: Reports: No Symptoms Psychiatric: Reports: depression - Patient Data Vitals - most recent: Last Vital Signs Temp 37.1 C 07/21/16 08:00 Pulse 96 07/21/16 08:26 Resp 16 07/21/16 08:00 BP 145/88 H 07/21/16 08:26 Pulse Ox 99 07/21/16 08:00 Weight - most recent: 91.3 kg I&O - last 24 hours: Intake & Output 07/20/16 07/21/16 07/21/16 22:59 06:59 14:59 Intake Total 2586 1250 Balance 2586 1250 Lab Results last 24 hrs: Laboratory Results - last 24 hr 07/21/16 07/21/16 Range/Units 06:45 06:45 WBC 5.54 (3.98-10.04) K/mm3 RBC 3.95 L (3.98-5.22) M/mm3 Hgb 12.4 (11.2-15.7) gm/L Hct 36.4 (34.1-44.9) % MCV 92.2 (79.4-94.8) fl MCH 31.4 (25.6-32.2) pg MCHC 34.1 (32.2-35.5) g/dl RDW Std Deviation 40.7 (36.4-46.3) fL Plt Count 163 L (182-369) K/mm3 MPV 9.8 (9.4-12.3) fl Neut % (Auto) 44.4 (34.0-71.1) % Lymph % (Auto) 42.1 (19.3-51.7) % [place] % (Auto) 6.5 (4.7-12.5) % Eos % (Auto) 6.3 H (0.7-5.8) Baso % (Auto) 0.5 (0.1-1.2) % Neut # (Auto) 2.46 (1.56-6.13) K/mm3 Lymph # (Auto) 2.33 (1.18-3.74) K/mm3 [place] # (Auto) 0.36 (0.24-0.36) K/mm3 Eos # (Auto) 0.35 (0.04-0.36) K/mm3 Baso # (Auto) 0.03 (0.01-0.08) K/mm3 Sodium 138 (136-145) mEq/L Potassium 3.8 (3.5-5.1) mEq/L Chloride 105 (98-107) mEq/L Carbon Dioxide 25 (21-32) mEq/L Anion Gap 11.8 (5-15) BUN 8 (7-18) mg/dL Creatinine 0.9 (0.55-1.02) mg/dL Est Cr Clr Drug Dosing 71.03 mL/min Estimated GFR (MDRD) > 60 (>60) mL/min BUN/Creatinine Ratio 8.9 L (14-18) Glucose 103 (74-106) mg/dL Calcium 8.1 L (8.5-10.1) mg/dL Magnesium 1.8 (1.8-2.4) mg/dl Med Orders - Current: Current Medications Chlordiazepoxide HCl (Librium) 25 mg PO TID [facility] Last Admin: 07/21/16 08:23 Dose: 25 mg Clonidine HCl (Catapres) 0.1 mg PO TID [facility] Last Admin: 07/21/16 08:24 Dose: 0.1 mg Diazepam (Valium) 5 mg IVPUSH Q6H PRN PRN Reason: Anxiety Last Admin: 07/21/16 08:23 Dose: 5 mg Enoxaparin Sodium (Lovenox) 40 mg SUBCUT DAILY [facility] Last Admin: 07/21/16 08:23 Dose: 40 mg Folic Acid (Folic Acid) 1 mg PO DAILY [facility] Last Admin: 07/21/16 08:24 Dose: 1 mg Haloperidol Lactate (Haldol) 5 mg IVPUSH Q8H PRN PRN Reason: restlessness Last Admin: 07/20/16 20:03 Dose: 5 mg Loperamide HCl (Imodium) 2 mg PO Q4H PRN PRN Reason: Diarrhea Last Admin: 07/21/16 08:26 Dose: 2 mg Metoprolol Tartrate (Lopressor) 25 mg PO Q12HR [facility] Last Admin: 07/21/16 08:26 Dose: 25 mg Multivitamins (Thera) 1 each PO DAILY [facility] Last Admin: 07/21/16 08:26 Dose: 1 each Ondansetron HCl (Zofran) 4 mg IV Q8H PRN PRN Reason: Nausea/Vomiting Last Admin: 07/19/16 02:10 Dose: 4 mg Potassium Chloride (Potassium Chloride) 40 meq PO BID [facility] Last Admin: 07/21/16 08:23 Dose: 40 meq Prochlorperazine Edisylate (Compazine) 10 mg IVPUSH Q6H [facility] Last Admin: 07/21/16 06:24 Dose: Not Given Saccharomyces Boulardii (Florastor) 250 mg PO BID [facility] Last Admin: 07/21/16 08:23 Dose: 250 mg Sodium Chloride (Saline Flush) 10 ml FLUSH ASDIRECTED PRN PRN Reason: Keep Vein Open Last Admin: 07/20/16 12:04 Dose: 10 ml Temazepam (Restoril) 30 mg PO BEDTIME PRN PRN Reason: Insomnia Last Admin: 07/20/16 20:04 Dose: 30 mg Thiamine HCl (Vitamin B-1) 100 mg PO DAILY [facility] Last Admin: 07/21/16 08:24 Dose: 100 mg Discontinued Medications Chlordiazepoxide HCl (Librium) 25 mg PO ONETIME ONE Stop: 07/18/16 21:43 Last Admin: 07/18/16 21:56 Dose: 25 mg Diazepam (Valium) Confirm Administered Dose 10 mg .ROUTE .STK-MED ONE Stop: 07/18/16 20:45 Last Admin: 07/18/16 21:40 Dose: 5 mg Haloperidol Lactate (Haldol) 5 mg IM ONETIME ONE Stop: 07/18/16 15:46 Last Admin: 07/18/16 15:47 Dose: 5 mg Haloperidol Lactate (Haldol) Confirm Administered Dose 5 mg .ROUTE .STK-MED ONE Stop: 07/18/16 15:47 Last Admin: 07/18/16 18:56 Dose: Not Given Sodium Chloride (Normal Saline) 1,000 mls @ 999 mls/hr IV ONETIME ONE Stop: 07/18/16 18:46 Last Admin: 07/18/16 17:53 Dose: 999 mls/hr Lactated Ringer's (Ringers, Lactated) 1,000 mls @ 125 mls/hr IV ASDIRECTED [facility] Last Admin: 07/18/16 21:57 Dose: 125 mls/hr Lactated Ringer's (Ringers, Lactated) Confirm Administered Dose 1,000 mls @ as directed .ROUTE .STK-MED ONE Stop: 07/18/16 21:24 Last Admin: 07/18/16 21:41 Dose: 125 ml Multivitamins/Minerals 10 ml/ (Lactated Ringer's) 1,010 mls @ 125 mls/hr IV ONETIME ONE Stop: 07/19/16 16:04 Last Admin: 07/19/16 08:27 Dose: 125 mls/hr Lactated Ringer's (Ringers, Lactated) 1,000 mls @ 125 mls/hr IV ASDIRECTED [facility] Last Admin: 07/20/16 12:01 Dose: 125 mls/hr Magnesium Sulfate 2 gm/ Premix 50 mls @ 25 mls/hr IV ONETIME ONE Stop: 07/19/16 11:56 Last Admin: 07/19/16 12:57 Dose: 25 mls/hr Sodium Chloride (Saline Flush) 10 ml FLUSH ASDIRECTED PRN PRN Reason: Keep Vein Open Last Admin: 07/18/16 15:47 Dose: 10 ml Thiamine HCl (Vitamin B-1) 100 mg IV DAILY [facility] Last Admin: 07/19/16 08:04 Dose: 100 mg - Exam Quality Assessment: DVT prophylaxis General: alert, oriented, cooperative, no acute distress HEENT: Pupils equal, Pupils reactive, EOMI Neck: supple, trachea midline, no JVD Lungs: Normal respiratory effort Cardiovascular: Regular Rate, Regular Rhythm Abdomen: bowel sounds present, soft, no tenderness, no distension (Female) Exam: Deferred Back Exam: Normal Inspection Extremities: normal pulses Skin: warm Neurological: no new focal deficit, normal gait, normal speech Psy/Mental Status: alert, anxious - Problem List & Annotations (1) Alcohol abuse SNOMED Code(s): 64825169 Code(s): F10.10 - ALCOHOL ABUSE, UNCOMPLICATED Status: Acute Current Visit: Yes (2) Depressive disorder SNOMED Code(s): 06256677 Code(s): F32.9 - MAJOR DEPRESSIVE DISORDER, SINGLE EPISODE, UNSPECIFIED Status: Acute Current Visit: Yes (3) Drug abuse SNOMED Code(s): 72453119 Code(s): F19.10 - OTHER PSYCHOACTIVE SUBSTANCE ABUSE, UNCOMPLICATED Status : Acute Current Visit: Yes (4) Panic disorder SNOMED Code(s): 517940621, 403758789 Code(s): F41.0 - PANIC DISORDER WITHOUT AGORAPHOBIA Status: Acute Current Visit: Yes (5) Alcohol intoxication SNOMED Code(s): 67650119 Code(s): F10.129 - ALCOHOL ABUSE WITH INTOXICATION, UNSPECIFIED Status: Acute Current Visit: No - Problem List Review Problem List Initiated/Reviewed/Updated: Yes - My Orders Last 24 Hours: My Active Orders 07/20/16 14:00 Potassium Chloride 40 meq PO BID 07/20/16 15:00 cloNIDine [Catapres] 0.1 mg PO TID 07/20/16 15:33 Loperamide [Imodium] 2 mg PO Q4H PRN 07/20/16 21:00 Saccharomyces Boulardii [Florastor] 250 mg PO BID 07/20/16 Dinner Regular Diet [DIET] 07/22/16 05:00 BMP [BASIC METABOLIC PANEL,BMP] [CHEM] DAILY CBC WITH AUTO DIFF [HEME] DAILY MAGNESIUM [CHEM] DAILY - Plan Plan:: Impression: Alcohol dependence/intoxication Benzodiazepine Abuse Psychiatric history Anxiety/Depression Diarrhea resolved with Imodium Elevated WBC, resolved Chronic HTN MARYAM on CPAP Obesity Antiphospholipid syndrome Plan: CXR, 2 views DVT/GI prophylaxis CIWA protocol IVF Replace electrolytes Consult Yuri-depression/anxiety Consult Travis Winter-addiction evaluation Consult SW Will need inpatient rehab, placement is pending. LOS approaching 96 hours, await inpatient placement
[2016-07-21] MEDS: Ondansetron 4 MG/2 ML SDV IV PRN (11:49)
[2016-07-21] MEDS ORDERED: Magnesium Sulfate/Water 2 GM in Premix Bag 1 BAG IV ONE (17:31)
[2016-07-21] MEDS: Haloperidol Lactate 5 MG/ML SDV IVPUSH PRN (20:20)
[2016-07-21] MEDS: Temazepam 30 MG Cap PO PRN (20:21)
[2016-07-22] MEDS: Prochlorperazine 10 MG/2 ML SDV IVPUSH SCH ×2 (06:17→12:07)
[2016-07-22] MEDS: Potassium Chloride 10% 20 MEQ/15 ML Soln 30 ML UD Cup PO SCH (08:18)
[2016-07-22] MEDS: Saccharomyces Boulardii (Probiotic) 250 MG Cap PO SCH (08:18)
[2016-07-22] MEDS: Multivitamins,Therapeutic Tab PO SCH (08:19)
[2016-07-22] MEDS: Thiamine 100 MG Tab PO SCH (08:19)
[2016-07-22] MEDS: cloNIDine 0.1 MG Tab PO SCH ×2 (08:19→15:10)
[2016-07-22] MEDS: chlordiazePOXIDE 25 MG Cap PO SCH (08:19)
[2016-07-22] MEDS: Metoprolol Tartrate 25 MG Tab PO SCH (08:21)
[2016-07-22] MEDS: Enoxaparin 40 MG/0.4 ML Syringe SUBCUT SCH (08:21)
[2016-07-22] MEDS: Folic Acid 1 MG Tab PO SCH (08:21)
--- NOTE | 2016-07-22 10:25 | PCM.DCSUM1 ---
<Najma Byrnes M - Last Filed: 07/22/16 10:21> Discharge Summary - Hospital Course Free Text/Narrative:: 46 year old female with history of substance abuse including ETOH and Ativan. She reportedly wanted to undergo detox treatment before trying to sign out AMA. A 24 hour hold has been placed, if the patient tries to leave, she will be put in long term. The FERN is 0.32; there is a reported history of depression and anxiety. She was admitted for alcohol withdrawl/detox and medical clearance prior to discharge to treatment center. She was maintained on CIWA protocol with ativan PRN and librium. B/P was controlled with metoprolol and clonidine, did well. She was evaluated by SA and Psychiatry; committed to [facility] for treatment. [facility] screened her at level 3.7. She will be discharged with [facility] transport to [facility] today. - Discharge Data Discharge Date: 07/22/16 (admit date 07/18/16) Discharge Disposition: DC/Tfer to Psych Hosp/Unit [facility] Condition: Good - Patient Summary/Data Operative Procedure(s) Performed: None Complications: None Consults: Consultations 07/19/16 09:00 Consult to Insurance Counsel [CONS] Routine 07/19/16 11:00 Consult for Substance Abuse [CONS] Routine 07/19/16 13:00 Consult to Physician [CONS] Routine Labs Pending at D/C: None Recommended Follow-up Testing/Procedures: Follow up with PCP when DC'd from [facility] Follow up with addiction counselor and AA services Planned Operative Procedure(s) after DC: None Hospital Course: As above - Patient Instructions Diet: Usual Diet as Tolerated, Drink 8-10+ Glasses/Day Activity: As Tolerated Driving: Do Not Drive Showering/Bathing: May Shower Notify Provider of: Fever, Increased Pain, Swelling and Redness, Nausea and/or Vomiting - Discharge Plan Prescriptions/Med Rec: Metoprolol Tartrate [Lopressor] 25 mg PO Q12HR #60 tablet Folic Acid 1 mg PO DAILY #30 tablet Potassium Chloride 40 meq PO BID #60 cup Thiamine [Vitamin B-1] 100 mg PO DAILY #30 tablet cloNIDine [Catapres] 0.1 mg PO TID #30 tablet Home Medications: Home Meds Folic Acid 1 mg PO DAILY #30 tablet 07/22/16 [Rx] Metoprolol Tartrate [Lopressor] 25 mg PO Q12HR #60 tablet 07/22/16 [Rx] Multivitamins,Therapeutic [Thera] 1 each PO DAILY #0 tablet 07/22/16 [Rx] Potassium Chloride 40 meq PO BID #60 cup 07/22/16 [Rx] Thiamine [Vitamin B-1] 100 mg PO DAILY #30 tablet 07/22/16 [Rx] cloNIDine [Catapres] 0.1 mg PO TID #30 tablet 07/22/16 [Rx] Patient Handouts: Substance Use Disorder, Alcohol Intoxication, [id number], Alcohol Withdrawal, Cchy-yo-[id number] Forms: ED Department Discharge Referrals: Amirah Villanueva NP [Primary Care Provider] - - Discharge Summary/Plan Comment DC Time >30 min.: Yes (40 min) - General Info Date of Service: 07/22/16 Admission Dx/Problem (Free Text: Patient wants to leave but will stay for now; consults are scheduled with substance abuse and psychiatry. Functional Status: Reports: pain controlled, tolerating diet, ambulating, urinating. Denies: new symptoms - Review of Systems General: Reports: No Symptoms HEENT: Reports: no symptoms Pulmonary: Reports: no symptoms Cardiovascular: Reports: No Symptoms Gastrointestinal: Reports: No symptoms Genitourinary: Reports: no symptoms Musculoskeletal: Reports: no symptoms Skin: Reports: no symptoms Neurological: Reports: No Symptoms Psychiatric: Reports: no symptoms - Patient Data Vitals - Most Recent: Last Vital Signs Temp 98.1 F 07/22/16 08:20 Pulse 68 07/22/16 08:21 Resp 16 07/22/16 08:20 BP 106/78 07/22/16 08:21 Pulse Ox 98 07/22/16 08:20 Weight - Most Recent: 91.444 kg I&O - Last 24 hours: Intake & Output 07/21/16 07/22/16 07/22/16 22:59 06:59 14:59 Intake Total 120 800 Output Total 2 Balance 118 800 Lab Results - Last 24 hrs: Laboratory Results - last 24 hr 07/22/16 07/22/16 Range/Units 05:38 05:38 WBC 5.76 (3.98-10.04) K/mm3 RBC 3.94 L (3.98-5.22) M/mm3 Hgb 12.5 (11.2-15.7) gm/L Hct 36.5 (34.1-44.9) % MCV 92.6 (79.4-94.8) fl MCH 31.7 (25.6-32.2) pg MCHC 34.2 (32.2-35.5) g/dl RDW Std Deviation 40.6 (36.4-46.3) fL Plt Count 165 L (182-369) K/mm3 MPV 10.1 (9.4-12.3) fl Neut % (Auto) 44.7 (34.0-71.1) % Lymph % (Auto) 41.0 (19.3-51.7) % Dixie % (Auto) 6.6 (4.7-12.5) % Eos % (Auto) 6.6 H (0.7-5.8) Baso % (Auto) 0.9 (0.1-1.2) % Neut # (Auto) 2.58 (1.56-6.13) K/mm3 Lymph # (Auto) 2.36 (1.18-3.74) K/mm3 Dixie # (Auto) 0.38 H (0.24-0.36) K/mm3 Eos # (Auto) 0.38 H (0.04-0.36) K/mm3 Baso # (Auto) 0.05 (0.01-0.08) K/mm3 Sodium 137 (136-145) mEq/L Potassium 4.2 (3.5-5.1) mEq/L Chloride 104 (98-107) mEq/L Carbon Dioxide 24 (21-32) mEq/L Anion Gap 13.2 (5-15) BUN 9 (7-18) mg/dL Creatinine 0.9 (0.55-1.02) mg/dL Est Cr Clr Drug Dosing 71.03 mL/min Estimated GFR (MDRD) > 60 (>60) mL/min BUN/Creatinine Ratio 10.0 L (14-18) Glucose 108 H (74-106) mg/dL Calcium 8.3 L (8.5-10.1) mg/dL Magnesium 1.9 (1.8-2.4) mg/dl Med Orders - Current: Current Medications Clonidine HCl (Catapres) 0.1 mg PO TID [facility] Last Admin: 07/22/16 08:19 Dose: 0.1 mg Diazepam (Valium) 5 mg IVPUSH Q6H PRN PRN Reason: Anxiety Last Admin: 07/21/16 08:23 Dose: 5 mg Enoxaparin Sodium (Lovenox) 40 mg SUBCUT DAILY [facility] Last Admin: 07/22/16 08:21 Dose: 40 mg Folic Acid (Folic Acid) 1 mg PO DAILY [facility] Last Admin: 07/22/16 08:21 Dose: 1 mg Haloperidol Lactate (Haldol) 5 mg IVPUSH Q8H PRN PRN Reason: restlessness Last Admin: 07/21/16 20:20 Dose: 5 mg Loperamide HCl (Imodium) 2 mg PO Q4H PRN PRN Reason: Diarrhea Last Admin: 07/21/16 11:49 Dose: 2 mg Metoprolol Tartrate (Lopressor) 25 mg PO Q12HR [facility] Last Admin: 07/22/16 08:21 Dose: 25 mg Multivitamins (Thera) 1 each PO DAILY [facility] Last Admin: 07/22/16 08:19 Dose: 1 each Ondansetron HCl (Zofran) 4 mg IV Q8H PRN PRN Reason: Nausea/Vomiting Last Admin: 07/21/16 11:49 Dose: 4 mg Potassium Chloride (Potassium Chloride) 40 meq PO BID [facility] Last Admin: 07/22/16 08:18 Dose: 40 meq Prochlorperazine Edisylate (Compazine) 10 mg IVPUSH Q6H [facility] Last Admin: 07/22/16 06:17 Dose: Not Given Saccharomyces Boulardii (Florastor) 250 mg PO BID [facility] Last Admin: 07/22/16 08:18 Dose: 250 mg Sodium Chloride (Saline Flush) 10 ml FLUSH ASDIRECTED PRN PRN Reason: Keep Vein Open Last Admin: 07/20/16 12:04 Dose: 10 ml Thiamine HCl (Vitamin B-1) 100 mg PO DAILY [facility] Last Admin: 07/22/16 08:19 Dose: 100 mg Discontinued Medications Chlordiazepoxide HCl (Librium) 25 mg PO TID [facility] Last Admin: 07/22/16 08:19 Dose: 25 mg Chlordiazepoxide HCl (Librium) 25 mg PO ONETIME ONE Stop: 07/18/16 21:43 Last Admin: 07/18/16 21:56 Dose: 25 mg Diazepam (Valium) Confirm Administered Dose 10 mg .ROUTE .STK-MED ONE Stop: 07/18/16 20:45 Last Admin: 07/18/16 21:40 Dose: 5 mg Haloperidol Lactate (Haldol) 5 mg IM ONETIME ONE Stop: 07/18/16 15:46 Last Admin: 07/18/16 15:47 Dose: 5 mg Haloperidol Lactate (Haldol) Confirm Administered Dose 5 mg .ROUTE .STK-MED ONE Stop: 07/18/16 15:47 Last Admin: 07/18/16 18:56 Dose: Not Given Sodium Chloride (Normal Saline) 1,000 mls @ 999 mls/hr IV ONETIME ONE Stop: 07/18/16 18:46 Last Admin: 07/18/16 17:53 Dose: 999 mls/hr Lactated Ringer's (Ringers, Lactated) 1,000 mls @ 125 mls/hr IV ASDIRECTED [facility] Last Admin: 07/18/16 21:57 Dose: 125 mls/hr Lactated Ringer's (Ringers, Lactated) Confirm Administered Dose 1,000 mls @ as directed .ROUTE .STK-MED ONE Stop: 07/18/16 21:24 Last Admin: 07/18/16 21:41 Dose: 125 ml Multivitamins/Minerals 10 ml/ (Lactated Ringer's) 1,010 mls @ 125 mls/hr IV ONETIME ONE Stop: 07/19/16 16:04 Last Admin: 07/19/16 08:27 Dose: 125 mls/hr Lactated Ringer's (Ringers, Lactated) 1,000 mls @ 125 mls/hr IV ASDIRECTED [facility] Last Admin: 07/20/16 12:01 Dose: 125 mls/hr Magnesium Sulfate 2 gm/ Premix 50 mls @ 25 mls/hr IV ONETIME ONE Stop: 07/19/16 11:56 Last Admin: 07/19/16 12:57 Dose: 25 mls/hr Magnesium Sulfate 2 gm/ Premix 50 mls @ 25 mls/hr IV ONETIME ONE Stop: 07/21/16 19:30 Last Admin: 07/21/16 18:18 Dose: 25 mls/hr Sodium Chloride (Saline Flush) 10 ml FLUSH ASDIRECTED MAN PRN Reason: Keep Vein Open Last Admin: 07/18/16 15:47 Dose: 10 ml Temazepam (Restoril) 30 mg PO BEDTIME PRN PRN Reason: Insomnia Last Admin: 07/21/16 20:21 Dose: 30 mg Thiamine HCl (Vitamin B-1) 100 mg IV DAILY [facility] Last Admin: 07/19/16 08:04 Dose: 100 mg - Exam Quality Assessment: Reports: DVT prophylaxis General: Reports: alert, oriented, cooperative, no acute distress HEENT: Reports: Pupils equal, Pupils reactive, EOMI, Mucous membr. moist/pink Neck: Reports: supple Lungs: Reports: Clear to auscultation, Normal respiratory effort Cardiovascular: Reports: Regular Rate, Regular Rhythm Abdomen: Reports: bowel sounds present, soft, no tenderness, no distension (Female) Exam: Deferred Rectal (Female) Exam: Deferred Extremities: Reports: no edema Neurological: Reports: no new focal deficit Psy/Mental Status: Reports: alert, normal affect, normal mood *Q Meaningful Use (DIS) - VTE *Q VTE Criteria *Q: - Stroke *Q Stroke Criteria *Q: - AMI *Q AMI Criteria *Q: <Cherry Gonzales - Last Filed: 07/22/16 10:44> Discharge Summary - Hospital Course Free Text/Narrative:: DC to [facility], appears to be motivated. Will need close follow up after DC, suggest Travis Winter. - Discharge Diagnosis/Problem(s) (1) Alcohol abuse SNOMED Code(s): 57674005 ICD Code: F10.10 - ALCOHOL ABUSE, UNCOMPLICATED Status: Acute Current Visit: Yes (2) Depressive disorder SNOMED Code(s): 49652314 ICD Code: F32.9 - MAJOR DEPRESSIVE DISORDER, SINGLE EPISODE, UNSPECIFIED Status: Acute Current Visit: Yes (3) Drug abuse SNOMED Code(s): 52749517 ICD Code: F19.10 - OTHER PSYCHOACTIVE SUBSTANCE ABUSE, UNCOMPLICATED Status : Acute Current Visit: Yes (4) Panic disorder SNOMED Code(s): 427136938, 156205974 ICD Code: F41.0 - PANIC DISORDER WITHOUT AGORAPHOBIA Status: Acute Current Visit: Yes (5) Alcohol intoxication SNOMED Code(s): 18877815 ICD Code: F10.129 - ALCOHOL ABUSE WITH INTOXICATION, UNSPECIFIED Status: Acute Current Visit: No - Patient Summary/Data Consults: Consultations 07/19/16 09:00 Consult to Insurance Counsel [CONS] Routine 07/19/16 11:00 Consult for Substance Abuse [CONS] Routine 07/19/16 13:00 Consult to Physician [CONS] Routine - Patient Data Vitals - Most Recent: Last Vital Signs Temp 36.7 C 07/22/16 08:20 Pulse 68 07/22/16 08:21 Resp 16 07/22/16 08:20 BP 106/78 07/22/16 08:21 Pulse Ox 98 07/22/16 08:20 I&O - Last 24 hours: Intake & Output 07/21/16 07/22/16 07/22/16 22:59 06:59 14:59 Intake Total 120 800 Output Total 2 Balance 118 800 Lab Results - Last 24 hrs: Laboratory Results - last 24 hr 07/22/16 07/22/16 Range/Units 05:38 05:38 WBC 5.76 (3.98-10.04) K/mm3 RBC 3.94 L (3.98-5.22) M/mm3 Hgb 12.5 (11.2-15.7) gm/L Hct 36.5 (34.1-44.9) % MCV 92.6 (79.4-94.8) fl MCH 31.7 (25.6-32.2) pg MCHC 34.2 (32.2-35.5) g/dl RDW Std Deviation 40.6 (36.4-46.3) fL Plt Count 165 L (182-369) K/mm3 MPV 10.1 (9.4-12.3) fl Neut % (Auto) 44.7 (34.0-71.1) % Lymph % (Auto) 41.0 (19.3-51.7) % Dixie % (Auto) 6.6 (4.7-12.5) % Eos % (Auto) 6.6 H (0.7-5.8) Baso % (Auto) 0.9 (0.1-1.2) % Neut # (Auto) 2.58 (1.56-6.13) K/mm3 Lymph # (Auto) 2.36 (1.18-3.74) K/mm3 Dixie # (Auto) 0.38 H (0.24-0.36) K/mm3 Eos # (Auto) 0.38 H (0.04-0.36) K/mm3 Baso # (Auto) 0.05 (0.01-0.08) K/mm3 Sodium 137 (136-145) mEq/L Potassium 4.2 (3.5-5.1) mEq/L Chloride 104 (98-107) mEq/L Carbon Dioxide 24 (21-32) mEq/L Anion Gap 13.2 (5-15) BUN 9 (7-18) mg/dL Creatinine 0.9 (0.55-1.02) mg/dL Est Cr Clr Drug Dosing 71.03 mL/min Estimated GFR (MDRD) > 60 (>60) mL/min BUN/Creatinine Ratio 10.0 L (14-18) Glucose 108 H (74-106) mg/dL Calcium 8.3 L (8.5-10.1) mg/dL Magnesium 1.9 (1.8-2.4) mg/dl Med Orders - Current: Current Medications Clonidine HCl (Catapres) 0.1 mg PO TID [facility] Last Admin: 07/22/16 08:19 Dose: 0.1 mg Diazepam (Valium) 5 mg IVPUSH Q6H PRN PRN Reason: Anxiety Last Admin: 07/21/16 08:23 Dose: 5 mg Enoxaparin Sodium (Lovenox) 40 mg SUBCUT DAILY [facility] Last Admin: 07/22/16 08:21 Dose: 40 mg Folic Acid (Folic Acid) 1 mg PO DAILY [facility] Last Admin: 07/22/16 08:21 Dose: 1 mg Haloperidol Lactate (Haldol) 5 mg IVPUSH Q8H PRN PRN Reason: restlessness Last Admin: 07/21/16 20:20 Dose: 5 mg Loperamide HCl (Imodium) 2 mg PO Q4H PRN PRN Reason: Diarrhea Last Admin: 07/21/16 11:49 Dose: 2 mg Metoprolol Tartrate (Lopressor) 25 mg PO Q12HR [facility] Last Admin: 07/22/16 08:21 Dose: 25 mg Multivitamins (Thera) 1 each PO DAILY [facility] Last Admin: 07/22/16 08:19 Dose: 1 each Ondansetron HCl (Zofran) 4 mg IV Q8H PRN PRN Reason: Nausea/Vomiting Last Admin: 07/21/16 11:49 Dose: 4 mg Potassium Chloride (Potassium Chloride) 40 meq PO BID [facility] Last Admin: 07/22/16 08:18 Dose: 40 meq Prochlorperazine Edisylate (Compazine) 10 mg IVPUSH Q6H [facility] Last Admin: 07/22/16 06:17 Dose: Not Given Saccharomyces Boulardii (Florastor) 250 mg PO BID [facility] Last Admin: 07/22/16 08:18 Dose: 250 mg Sodium Chloride (Saline Flush) 10 ml FLUSH ASDIRECTED PRN PRN Reason: Keep Vein Open Last Admin: 07/20/16 12:04 Dose: 10 ml Thiamine HCl (Vitamin B-1) 100 mg PO DAILY [facility] Last Admin: 07/22/16 08:19 Dose: 100 mg Discontinued Medications Chlordiazepoxide HCl (Librium) 25 mg PO TID [facility] Last Admin: 07/22/16 08:19 Dose: 25 mg Chlordiazepoxide HCl (Librium) 25 mg PO ONETIME ONE Stop: 07/18/16 21:43 Last Admin: 07/18/16 21:56 Dose: 25 mg Diazepam (Valium) Confirm Administered Dose 10 mg .ROUTE .STK-MED ONE Stop: 07/18/16 20:45 Last Admin: 07/18/16 21:40 Dose: 5 mg Haloperidol Lactate (Haldol) 5 mg IM ONETIME ONE Stop: 07/18/16 15:46 Last Admin: 07/18/16 15:47 Dose: 5 mg Haloperidol Lactate (Haldol) Confirm Administered Dose 5 mg .ROUTE .STK-MED ONE Stop: 07/18/16 15:47 Last Admin: 07/18/16 18:56 Dose: Not Given Sodium Chloride (Normal Saline) 1,000 mls @ 999 mls/hr IV ONETIME ONE Stop: 07/18/16 18:46 Last Admin: 07/18/16 17:53 Dose: 999 mls/hr Lactated Ringer's (Ringers, Lactated) 1,000 mls @ 125 mls/hr IV ASDIRECTED [facility] Last Admin: 07/18/16 21:57 Dose: 125 mls/hr Lactated Ringer's (Ringers, Lactated) Confirm Administered Dose 1,000 mls @ as directed .ROUTE .STK-MED ONE Stop: 07/18/16 21:24 Last Admin: 07/18/16 21:41 Dose: 125 ml Multivitamins/Minerals 10 ml/ (Lactated Ringer's) 1,010 mls @ 125 mls/hr IV ONETIME ONE Stop: 07/19/16 16:04 Last Admin: 07/19/16 08:27 Dose: 125 mls/hr Lactated Ringer's (Ringers, Lactated) 1,000 mls @ 125 mls/hr IV ASDIRECTED [facility] Last Admin: 07/20/16 12:01 Dose: 125 mls/hr Magnesium Sulfate 2 gm/ Premix 50 mls @ 25 mls/hr IV ONETIME ONE Stop: 07/19/16 11:56 Last Admin: 07/19/16 12:57 Dose: 25 mls/hr Magnesium Sulfate 2 gm/ Premix 50 mls @ 25 mls/hr IV ONETIME ONE Stop: 07/21/16 19:30 Last Admin: 07/21/16 18:18 Dose: 25 mls/hr Sodium Chloride (Saline Flush) 10 ml FLUSH ASDIRECTED PRN PRN Reason: Keep Vein Open Last Admin: 07/18/16 15:47 Dose: 10 ml Temazepam (Restoril) 30 mg PO BEDTIME PRN PRN Reason: Insomnia Last Admin: 07/21/16 20:21 Dose: 30 mg Thiamine HCl (Vitamin B-1) 100 mg IV DAILY [facility] Last Admin: 07/19/16 08:04 Dose: 100 mg *Q Meaningful Use (DIS) - VTE *Q VTE Criteria *Q: - Stroke *Q Stroke Criteria *Q: - AMI *Q AMI Criteria *Q:
[2016-07-22] MEDS ORDERED: Prochlorperazine 5 MG Tab PO PRN (11:47)
[2016-07-22 15:11] VITALS: BP 127/87
== END 2016-07-22 17:38 | DRG 775 ==
LOC: JD.ED 15:23 → JD.ICU 18:43 → JD.MS 07-21 15:00
PROVIDERS: ADMIT Internal Medicine Cardiovascular Disease; ATTEND Internal Medicine Cardiovascular Disease
DX: F10.229 Alcohol dependence with intoxication, unspecified (principal); F10.239 Alcohol dependence with withdrawal, unspecified; F13.20 Sedative, hypnotic or anxiolytic dependence, uncomplicated; Y90.7 Blood alcohol level of 200-239 mg/100 ml; F32.9 Major depressive disorder, single episode, unspecified; F41.0 Panic disorder [episodic paroxysmal anxiety]; R19.7 Diarrhea, unspecified; I10 Essential (primary) hypertension; G47.33 Obstructive sleep apnea (adult) (pediatric); E66.9 Obesity, unspecified; Z68.30 Body mass index [BMI] 30.0-30.9, adult; Z79.899 Other long term (current) drug therapy; D68.61 Antiphospholipid syndrome; E03.9 Hypothyroidism, unspecified; D72.829 Elevated white blood cell count, unspecified
CPT/HCPCS: 36415; 71020; 71020-26; 80048; 80053; 80306; 81001; 83735; 84443; 85025; 93005; 96360; 96372; 99285; 99285-25; A9270-GY; G0480; J0780; J1630; J1650; J2405; J3360; J3411; J3475; J7040; J7050; J7120; P9612; Q0164

== ENCOUNTER 2022-03-21 18:45 | Emergency (ER) | payer BC ==
[2022-03-21 19:07] VITALS: BP 167/107; PULSE 93
[2022-03-21] MEDS ORDERED: Ondansetron 4 MG/2 ML SDV IVPUSH ONE (19:08)
[2022-03-21] MEDS ORDERED: Sodium Chloride 0.9% 10 ML Syringe FLUSH PRN (19:08)
[2022-03-21] MEDS ORDERED: Sodium Chloride 0.9% 1,000 ML IV SCH (19:15)
[2022-03-21] MEDS ORDERED: Iopamidol 612 MG/ML 100 ML Bottle IVPUSH ONE (19:25)
[2022-03-21] MEDS ORDERED: Sodium Chloride 0.9% 10 ML Syringe FLUSH ONE (19:25)
[2022-03-21 20:06] LABS: CORONAVIRUS COVID-19 NAA NEGATIVE (NEGATIVE)
== END 2022-03-21 21:28 | disposition home or self-care (01) ==
LOC: JD.ED 18:45
DX: K63.89 Other specified diseases of intestine (principal); I10 Essential (primary) hypertension; E66.9 Obesity, unspecified; Z79.899 Other long term (current) drug therapy; Z20.822 Contact with and (suspected) exposure to COVID-19; Z68.38 Body mass index [BMI] 38.0-38.9, adult
CPT/HCPCS: 0240U; 36415; 74177; 80053; 81001; 83690; 85025; 86140; 87086; 96361; 96374; 99284; J2405; J3490; J7030; Q9967

== ENCOUNTER 2023-02-25 17:12 | Emergency (ER) | payer BC ==
[2023-02-25] MEDS ORDERED: Sodium Chloride 0.9% 10 ML Syringe FLUSH PRN (17:32)
[2023-02-25] MEDS ORDERED: Ketorolac 30 MG/ML SDV IVPUSH ONE (17:32)
[2023-02-25 17:35] LABS: APPEARANCE,URINE CLEAR (Clear); BILIRUBIN,URINE NEGATIVE (Negative); COLOR,URINE YELLOW (Yellow); GLUCOSE,URINE NEGATIVE (Negative); KETONES,URINE NEGATIVE (Negative); LEUKOCYTE ESTERASE,URINE TRACE (Negative); NITRITE,URINE NEGATIVE (Negative); OCCULT BLOOD,URINE NEGATIVE (Negative); PROTEIN,URINE NEGATIVE (Negative); UROBILINOGEN,URINE 0.2 (0.2-1.0)
[2023-02-25] MEDS ORDERED: Sodium Chloride 0.9% 1,000 ML IV SCH (17:45)
[2023-02-25 18:00] LABS: BASOPHILS ABSOLUTE AUTO 0.1 K/mm3 (0.0-0.2); BASOPHILS PERCENT AUTO 1.2 % (0.0-1.0); EOSINOPHILS ABSOLUTE AUTO 0.2 K/mm3 (0.0-0.4); EOSINOPHILS PERCENT AUTO 3.1 % (0.0-6.0); HEMATOCRIT 42.6 % (37.0-47.0); HEMOGLOBIN 14.6 gm/dl (12.0-16.0); IMMATURE GRAN ABSOLUTE AUTO 0.02 K/mm3 (0.00-0.05); IMMATURE GRAN PERCENT AUTO 0.3 % (0.0-0.4); LYMPHOCYTES ABSOLUTE AUTO 2.8 K/mm3 (1.0-4.8); LYMPHOCYTES PERCENT AUTO 37.1 % (24.0-44.0); MEAN CORPUSCULAR HEMOGLOBIN 31.5 pg (28.0-32.0); MEAN CORPUSCULAR HGB CONC 34.3 g/dl (32.0-36.0); MEAN CORPUSCULAR VOLUME 91.8 fl (83.0-99.0); MEAN PLATELET VOLUME 9.1 fl (9.4-12.3); MONOCYTES ABSOLUTE AUTO 0.5 K/mm3 (0.0-0.8); MONOCYTES PERCENT AUTO 6.7 % (0.0-8.0); NEUTROPHILS ABSOLUTE AUTO 3.9 K/mm3 (1.8-7.7); NEUTROPHILS PERCENT AUTO 51.6 % (41.0-71.0); PLATELET COUNT,PLT 242 K/mm3 (150-400); RED BLOOD CELL COUNT 4.64 M/mm3 (4.10-5.30); WHITE BLOOD CELL COUNT,WBC 7.49 K/mm3 (3.9-11.3)
[2023-02-25 18:14] LABS: BACTERIA,URINE FEW /hpf (FEW); MUCUS,URINE RARE /hpf (FEW); RBC,URINE 0-5 /hpf (0-5)
[2023-02-25 18:20] LABS: A/G RATIO 0.9 (1-2); ALBUMIN 3.3 g/dl (3.4-5.0); ANION GAP 12.2 (5-15); BILIRUBIN TOTAL 0.4 mg/dL (0.2-1.0); C-REACTIVE PROTEIN 1.3 mg/dL (<1.0); EST CRCL DRUG DOSING (CG) 59.89 mL/min; POTASSIUM,K 4.2 mEq/L (3.5-5.1); PROTEIN TOTAL,TP 7.2 g/dl (6.4-8.2)
[2023-02-25] MEDS: Magnesium Citrate Solution 296 ML Bottle PO ONE (19:16)
[2023-02-25 19:34] VITALS: BP 143/93; PULSE 74
== END 2023-02-25 19:34 | disposition home or self-care (01) ==
LOC: JD.ED 17:12
DX: K59.00 Constipation, unspecified (principal); M62.830 Muscle spasm of back; I10 Essential (primary) hypertension; E66.9 Obesity, unspecified; Z79.899 Other long term (current) drug therapy; Z88.6 Allergy status to analgesic agent; Z68.41 Body mass index [BMI] 40.0-44.9, adult
CPT/HCPCS: 36415; 74018; 80053; 81001; 85025; 86140; 96374; 99284; A9270; J1885; J3490; J7030

== ENCOUNTER 2025-01-25 16:48 | Emergency (ER) | payer BC ==
[2025-01-25] MEDS ORDERED: Sodium Chloride 0.9% 10 ML Syringe FLUSH PRN (17:18)
[2025-01-25 17:27] LABS: BASOPHILS ABSOLUTE AUTO 0.1 K/mm3 (0.0-0.2); BASOPHILS PERCENT AUTO 1.2 % (0.0-1.0); EOSINOPHILS ABSOLUTE AUTO 0.2 K/mm3 (0.0-0.4); EOSINOPHILS PERCENT AUTO 2.4 % (0.0-6.0); IMMATURE GRAN ABSOLUTE AUTO 0.01 K/mm3 (0.00-0.05); IMMATURE GRAN PERCENT AUTO 0.1 % (0.0-0.4); LYMPHOCYTES ABSOLUTE AUTO 2.9 K/mm3 (1.0-4.8); LYMPHOCYTES PERCENT AUTO 36.3 % (24.0-44.0); MEAN PLATELET VOLUME 9.4 fl (9.4-12.3); MONOCYTES ABSOLUTE AUTO 0.5 K/mm3 (0.0-0.8); MONOCYTES PERCENT AUTO 5.6 % (0.0-8.0); NEUTROPHILS ABSOLUTE AUTO 4.4 K/mm3 (1.8-7.7); NEUTROPHILS PERCENT AUTO 54.4 % (41.0-71.0); NRBC ABSOLUTE 0.00 (0.00-0.02); NRBC PERCENT 0.0 % (0.0-0.2); PLATELET COUNT,PLT 263 K/mm3 (150-400); RED BLOOD CELL COUNT 5.13 M/mm3 (4.10-5.30); WHITE BLOOD CELL COUNT,WBC 8.08 K/mm3 (3.9-11.3)
[2025-01-25] MEDS: Iopamidol 755 Mg/ML 100 ML Bottle IVPUSH ONE (17:39)
[2025-01-25 17:46] LABS: INR 1.0
[2025-01-25 17:48] LABS: PTT,PARTIAL THROMBOPLSTIN TIME 31.8 SECONDS (21.7-31.4)
[2025-01-25 17:51] LABS: A/G RATIO 0.9 (1-2); ALANINE AMINOTRANSFERASE,ALT 24 U/L (14-59); ASPARTATE AMNIOTRANSFERASE,AST 15 U/L (15-37); BILIRUBIN TOTAL 0.2 mg/dL (0.2-1.0); BLOOD UREA NITROGEN,BUN 18 mg/dL (7-18); CARBON DIOXIDE,CO2 31 mEq/L (21-32); CHLORIDE,CL 98 mEq/L (98-107); CREATININE 1.1 mg/dL (0.55-1.02); ESTIMATED GFR 60 mL/min (>60); GLUCOSE RANDOM 181 mg/dL (70-99); POTASSIUM,K 3.9 mEq/L (3.5-5.1); PROTEIN TOTAL,TP 7.5 g/dl (6.4-8.2); SODIUM,NA 137 mEq/L (136-145); TROPONIN I HIGH SENSITIVITY 5 pg/mL (<=51)
[2025-01-25 19:03] VITALS: BP 147/87; PULSE 97
[2025-01-25] MEDS: Labetalol 100 MG/20 ML MDV IVPUSH ONE (19:13)
== END 2025-01-25 19:08 | disposition home or self-care (01) ==
LOC: JD.ED 16:48
DX: R20.2 Paresthesia of skin (principal); I10 Essential (primary) hypertension; E66.9 Obesity, unspecified; Z68.41 Body mass index [BMI] 40.0-44.9, adult; Z88.5 Allergy status to narcotic agent; Z88.8 Allergy status to other drugs, medicaments and biological substances; Z79.899 Other long term (current) drug therapy
CPT/HCPCS: 36415; 70450; 70496; 70498; 80053; 82947; 84484; 85025; 85610; 85730; 93005; 99284; Q9967

== ENCOUNTER 2025-02-10 12:44 | Emergency (ER) | payer BC ==
[2025-02-10 13:49] LABS: BASOPHILS ABSOLUTE AUTO 0.1 K/mm3 (0.0-0.2); BASOPHILS PERCENT AUTO 1.3 % (0.0-1.0); EOSINOPHILS ABSOLUTE AUTO 0.3 K/mm3 (0.0-0.4); EOSINOPHILS PERCENT AUTO 3.5 % (0.0-6.0); IMMATURE GRAN ABSOLUTE AUTO 0.02 K/mm3 (0.00-0.05); IMMATURE GRAN PERCENT AUTO 0.3 % (0.0-0.4); LYMPHOCYTES ABSOLUTE AUTO 2.6 K/mm3 (1.0-4.8); LYMPHOCYTES PERCENT AUTO 36.6 % (24.0-44.0); MEAN PLATELET VOLUME 9.3 fl (9.4-12.3); MONOCYTES ABSOLUTE AUTO 0.4 K/mm3 (0.0-0.8); MONOCYTES PERCENT AUTO 5.4 % (0.0-8.0); NEUTROPHILS ABSOLUTE AUTO 3.8 K/mm3 (1.8-7.7); NEUTROPHILS PERCENT AUTO 52.9 % (41.0-71.0); NRBC ABSOLUTE 0.00 (0.00-0.02); NRBC PERCENT 0.0 % (0.0-0.2); PLATELET COUNT,PLT 242 K/mm3 (150-400); RED BLOOD CELL COUNT 4.84 M/mm3 (4.10-5.30); WHITE BLOOD CELL COUNT,WBC 7.16 K/mm3 (3.9-11.3)
[2025-02-10 13:53] LABS: APPEARANCE,URINE CLEAR (Clear); GLUCOSE,URINE NEGATIVE (Negative); OCCULT BLOOD,URINE NEGATIVE (Negative)
[2025-02-10 14:02] LABS: BUPRENORPHINE SCREEN,URINE NEGATIVE (CUTOFF=10); METHADONE SCREEN, URINE NEGATIVE (CUTOFF=200); METHAMPHETAMINES SCREEN, URINE NEGATIVE (CUTOFF=500); OXYCODONE SCREEN,URINE NEGATIVE (CUT0FF=100); THC SCREEN,URINE 20 NG/ML NEGATIVE (CUTOFF=50)
[2025-02-10 14:12] LABS: AMPHETAMINES SCREEN, URINE NEGATIVE (CUTOFF=500)
[2025-02-10 14:22] LABS: A/G RATIO 0.9 (1-2); ALANINE AMINOTRANSFERASE,ALT 22.0 U/L (14-59); ASPARTATE AMNIOTRANSFERASE,AST 11.0 U/L (15-37); BILIRUBIN TOTAL 0.3 mg/dL (0.2-1.0); BLOOD UREA NITROGEN,BUN 11.0 mg/dL (7-18); CARBON DIOXIDE,CO2 30.0 mEq/L (21-32); CHLORIDE,CL 101.0 mEq/L (98-107); CREATININE 1.0 mg/dL (0.55-1.02); EST CRCL DRUG DOSING (CG) 58.54 mL/min; ESTIMATED GFR 67.0 mL/min (>60); GLUCOSE RANDOM 166.0 mg/dL (70-99); POTASSIUM,K 3.9 mEq/L (3.5-5.1); PROTEIN TOTAL,TP 7.1 g/dl (6.4-8.2); SODIUM,NA 139.0 mEq/L (136-145); TROPONIN I HIGH SENSITIVITY 5.0 pg/mL (<=51)
[2025-02-10] MEDS: Sodium Chloride 0.9% 10 ML Syringe FLUSH PRN (15:29)
[2025-02-10] MEDS: Magnesium Sulfat/D5W 1GM/100ML 1 GM in Premix Bag 1 BAG IV ONE (15:30)
[2025-02-10 18:10] VITALS: BP 150/102; PULSE 86
== END 2025-02-10 18:35 | disposition home or self-care (01) ==
LOC: JD.ED 12:44
DX: R07.9 Chest pain, unspecified (principal); E83.42 Hypomagnesemia; I10 Essential (primary) hypertension; E66.9 Obesity, unspecified; Z79.899 Other long term (current) drug therapy; Z88.5 Allergy status to narcotic agent; Z88.8 Allergy status to other drugs, medicaments and biological substances
CPT/HCPCS: 36415; 71045; 80053; 80306; 81003; 83735; 83880; 84484; 84703; 85025; 85379; 86140; 93005; 96365; 99285; J3475